=== PATIENT | male | born 1950 | race Caucasian/White ===

== ENCOUNTER → 2018-06-02 09:02 | Outpatient (CLI) | payer MEDICARE, MEDICAID, SELFPAY ==
[2018-06-02 09:53] LABS: Add Manual Diff / Slide Review NO; Basophils Percent Auto 0.8 % (0-2); Eosinophils Percent Auto 4.8 % (2-4); Lymphocytes Percent Auto 31.1 % (25-40); Mean Corpuscular HGB Conc 34.2 % (30-36); Mean Corpuscular Hemoglobin 30.2 PG (26-34); Mean Corpuscular Volume 88.3 fL (80-100); Monocytes Percent Auto 9.9 % (3-14); Neutrophils Absolute Auto 3000 /uL (3000-5900); Neutrophils Percent Auto 53.4 % (50-75); Platelet Count 254 X10^3/uL (150-400); Red Blood Cell Count 4.98 X10^6/uL (4.5-5.9); Red Cell Distribution Width 13.3 % (11.6-14.8); White Blood Cell Count 5.7 X10^3/uL (4.5-11.0)
[2018-06-02 09:58] LABS: Alanine Aminotransferase 29 IU/L (21-72); Albumin 4.3 g/dL (3.5-5.0); Albumin Globulin Ratio 1.4 (1.0-2.8); Alkaline Phosphatase 57 U/L (38-126); Aspartate Aminotransferase 21 IU/L (17-59); BUN Creatinine Ratio 20.9 (6-22); Bilirubin Total 0.6 mg/dL (0.2-1.3); Blood Urea Nitrogen 23 mg/dL (9-20); Calcium 9.2 mg/dL (8.4-10.2); Carbon Dioxide 27 mmol/L (22-32); Chloride 105 mmol/L (98-107); Cholesterol 199 mg/dL (140-199); Estimated Glomerular Filt Rate > 60.0 mL/min (>60); Globulin 3.1 g/dL (1.7-4.1); Glucose 102 mg/dL (80-110); HDL Cholesterol 49 mg/dL (40-60); HEMOLYSIS < 15 (0-50); LDL Cholesterol Calculated 130 mg/dL (<100); Potassium 4.4 mmol/L (3.4-5.1); Sodium 141 mmol/L (137-145); Total Protein 7.4 g/dL (6.3-8.2); Triglycerides 101 mg/dL (35-150)
[2018-06-02 10:56] LABS: TSH w/ Reflex to FT4 4.52 uIU/mL (0.47-4.68)
== END ==
PROVIDERS: PCP Family Medicine; Visit Provider Family Medicine
DX: I10 Essential (primary) hypertension (principal); E66.9 Obesity, unspecified; R73.03 Prediabetes; E78.5 Hyperlipidemia, unspecified; F31.70 Bipolar disorder, currently in remission, most recent episode unspecified
CPT/HCPCS: 36415; 80053; 80061; 84443; 85025

== ENCOUNTER → 2018-09-02 16:25 | Outpatient (CLI) | payer MEDICARE, MEDICAID, SELFPAY ==
[2018-09-02 18:30] LABS: Free T4, Direct Thyroxine 1.12 ng/dL (0.78-2.19)
[2018-09-02 18:44] LABS: Thyroid Stimulating Hormone 1.27 uIU/mL (0.47-4.68)
[2018-09-05 15:23] LABS: Fecal Immunochemical Test DETECTED
== END ==
PROVIDERS: PCP Family Medicine; Visit Provider Family Medicine
DX: F31.70 Bipolar disorder, currently in remission, most recent episode unspecified (principal); F32.9 Major depressive disorder, single episode, unspecified; F41.9 Anxiety disorder, unspecified; F98.8 Other specified behavioral and emotional disorders with onset usually occurring in childhood and adolescence; Z12.11 Encounter for screening for malignant neoplasm of colon
CPT/HCPCS: 36415; 82274; 84439; 84443; 84481

== ENCOUNTER 2018-10-06 14:41 | Day surgery (SDC) | payer MEDICARE, MEDICAID, SELFPAY ==
[2018-10-06 15:03] VITALS: BP 142/87; PULSE 58; RESP 16; TEMP 36.6; O2SAT 95; BMI 32.5
[2018-10-06] MEDS: SODIUM CHLORIDE 0.9% 1,000 ML 200 ML IV (15:26)
--- NOTE | 2018-10-06 15:39 | PM.HP.1 ---
History of Present Illness Date Patient Seen: 10/06/18 Time Patient Seen: 15:53 Chief complaint: [id number] Narrative: Pleasant gentleman who presents for screening colonoscopy. He denies any problems or symptoms related to the function of his GI tract. He reports that he has recently lost about 35 lb and he continues to work on it. He wants to get down another 35 or so. He reports his last colonoscopy was 10 years ago and he thinks it was normal. Perhaps he had 1 benign polyp. Tells me today that he would like to avoid Versed. He would like to try to watch the procedure as long as we can keep him comfortable. Patient History Medical History ADD (attention deficit disorder) (Chronic) Acute meniscal tear of right knee (Chronic) Benign prostatic hyperplasia (Chronic) Bipolar disorder (Chronic) History of psychosis (Chronic) Hypertension (Chronic) Surgical History Status post arthroscopy (~1984) Family & Social History Family History: Reviewed 10/06/18 by Christina Smith MD Social History: household members none Tobacco & Substance use: Smoking Status Never smoker Meds Home Medications Medication Instructions Recorded Confirmed Type terazosin 10 mg PO QDAY #0 02/06/17 10/06/18 History olanzapine [Zyprexa] 2.5 mg PO QDAY #90 tab 06/30/17 10/06/18 Rx sennosides [senna] 8.6 mg PO HSP PRN #30 tab 12/23/17 10/06/18 Rx fluticasone 50 mcg/actuation nasal 1 spray INTRANASAL BID #1 bot 06/04/18 10/06/18 Rx spray,suspension metoprolol succinate [Toprol XL] 50 mg PO QDAY #90 tab 06/08/18 10/06/18 Rx pimecrolimus 1 % topical cream 1 applictn TOP BIDP #1 tube 06/30/18 10/06/18 Rx ibuprofen 600 mg tablet 600 mg PO Q6HP PRN #90 tab 07/01/18 10/06/18 Rx levothyroxine 50 mcg capsule 50 mcg PO DAILY #90 cap 08/31/18 10/06/18 Rx paroxetine 40 mg tablet See Label Instructions PO DAILY 09/10/18 10/06/18 Rx #45 tab dextroamphetamine-amphetamine ER 40 mg PO QAM #60 cap 09/14/18 10/06/18 Rx 20 mg 24hr capsule,extend release Allergies Allergy/AdvReac Type Severity Reaction Status Date / Time enalapril [ENALAPRIL] Allergy Severe TONGUE Verified 10/06/18 15:02 SWELLS amlodipine [AMLODIPINE] Allergy Mild LEG Verified 09/03/18 14:17 SWELLING lisinopril [LISINOPRIL] Allergy Mild DIARRHEA Verified 09/03/18 14:17 lorazepam [LORAZEPAM] Allergy Mild VISION Verified 09/03/18 14:17 CHANGES acetaminophen [From PERCOCET] AdvReac Intermediate itching Verified 09/03/18 14:17 oxycodone [From PERCOCET] AdvReac Intermediate itching Verified 09/03/18 14:17 Review of Systems Review of Systems All systems reviewed & are unremarkable except as noted in HPI and below Exam Vital Signs (past 8 hours): - 10/06/18 15:03 Temperature 97.8 F Pulse Rate 58 L Respiratory Rate 16 Blood Pressure 142/87 H Pulse Oximetry 95 Oxygen Delivery Method Room Air Narrative Exam Narrative: Very pleasant gentleman in no distress HEENT: Normocephalic atraumatic, pupils equal round reactive to light accommodation with anicteric sclera Lungs: Clear to auscultation bilaterally Heart: Regular rate and rhythm without murmur rub or gallop Abdomen: Soft, nontender, active bowel sounds Extremities: Warm and well perfused Assessment & Plan Plan: Assessment/Plan Narrative: Wonderful 67-year-old gentleman here for screening colonoscopy. We discussed the risks and benefits of the procedure the patient expressed a desire to complete it today.
[2018-10-06 15:55] VITALS: BP 130/85; PULSE 54; RESP 15; TEMP 36.8; O2SAT 95
[2018-10-06] MEDS: MIDAZOLAM 5 MG/5 ML VIAL IV (15:56)
--- NOTE | 2018-10-06 15:56 | P.HP_ITS ---
History of Present Illness Date Patient Seen: 10/06/18 Time Patient Seen: 15:53 Chief complaint: [id number] Narrative: Pleasant gentleman who presents for screening colonoscopy. He denies any problems or symptoms related to the function of his GI tract. He reports that he has recently lost about 35 lb and he continues to work on it. He wants to get down another 35 or so. He reports his last colonoscopy was 10 years ago and he thinks it was normal. Perhaps he had 1 benign polyp. Tells me today that he would like to avoid Versed. He would like to try to watch the procedure as long as we can keep him comfortable. Patient History Medical History ADD (attention deficit disorder) (Chronic) Acute meniscal tear of right knee (Chronic) Benign prostatic hyperplasia (Chronic) Bipolar disorder (Chronic) History of psychosis (Chronic) Hypertension (Chronic) Surgical History Status post arthroscopy (~1984) Family & Social History Family History: Reviewed 10/06/18 by Christina Smith MD Social History: household members none Tobacco & Substance use: Smoking Status Never smoker Meds Home Medications Medication Instructions Recorded Confirmed Type terazosin 10 mg PO QDAY #0 02/06/17 10/06/18 History olanzapine [Zyprexa] 2.5 mg PO QDAY #90 tab 06/30/17 10/06/18 Rx sennosides [senna] 8.6 mg PO HSP PRN #30 tab 12/23/17 10/06/18 Rx fluticasone 50 mcg/actuation nasal 1 spray INTRANASAL BID #1 bot 06/04/18 Rx spray,suspension metoprolol succinate [Toprol XL] 50 mg PO QDAY #90 tab 06/08/18 10/06/18 Rx pimecrolimus 1 % topical cream 1 applictn TOP BIDP #1 tube 06/30/18 10/06/18 Rx ibuprofen 600 mg tablet 600 mg PO Q6HP PRN #90 tab 07/01/18 10/06/18 Rx levothyroxine 50 mcg capsule 50 mcg PO DAILY #90 cap 08/31/18 10/06/18 Rx paroxetine 40 mg tablet See Label Instructions PO DAILY 09/10/18 10/06/18 Rx #45 tab dextroamphetamine-amphetamine ER 40 mg PO QAM #60 cap 09/14/18 10/06/18 Rx 20 mg 24hr capsule,extend release Allergies Allergy/AdvReac Type Severity Reaction Status Date / Time enalapril [ENALAPRIL] Allergy Severe TONGUE Verified 10/06/18 15:02 SWELLS amlodipine [AMLODIPINE] Allergy Mild LEG Verified 09/03/18 14:17 SWELLING lisinopril [LISINOPRIL] Allergy Mild DIARRHEA Verified 09/03/18 14:17 lorazepam [LORAZEPAM] Allergy Mild VISION Verified 09/03/18 14:17 CHANGES acetaminophen [From PERCOCET] AdvReac Intermediate itching Verified 09/03/18 14: 17 oxycodone [From PERCOCET] AdvReac Intermediate itching Verified 09/03/18 14:17 Review of Systems Review of Systems All systems reviewed & are unremarkable except as noted in HPI and below Exam Vital Signs (past 8 hours): - 10/06/18 15:03 Temperature 97.8 F Pulse Rate 58 L Respiratory Rate 16 Blood Pressure 142/87 H Pulse Oximetry 95 Oxygen Delivery Method Room Air Narrative Exam Narrative: Very pleasant gentleman in no distress HEENT: Normocephalic atraumatic, pupils equal round reactive to light accommodation with anicteric sclera Lungs: Clear to auscultation bilaterally Heart: Regular rate and rhythm without murmur rub or gallop Abdomen: Soft, nontender, active bowel sounds Extremities: Warm and well perfused Assessment & Plan Plan: Assessment/Plan Narrative: Wonderful 67-year-old gentleman here for screening colonoscopy. We discussed the risks and benefits of the procedure the patient expressed a desire to complete it today.
--- NOTE | 2018-10-06 15:56 | PM.OP.1 ---
Operative Date/Time/Diagnoses Date of procedure: 10/06/18 Time of procedure: 15:56 Pre-op diagnosis: Screening Post-op diagnosis: same Procedure & Clinicians Procedure: Colonoscopy to the cecum Same procedure as scheduled: Yes Indications: Last colonoscopy 10 years ago Surgeon: Christina Smith Anesthesia Type: Sedation (Versed 2 mg; fentanyl 150 mcg) Operative Notes Findings: 1. Excellent prep 2. No polyps or mass lesions 3. Melanosis coli noted throughout 4. Minimal diverticulosis limited to the sigmoid region 5. Grade 1-2 internal hemorrhoids Closure Type: not applicable Specimen(s): none sent Procedure in detail: After obtaining informed consent, the patient was brought to the GI suite and placed in the left lateral decubitus position on the examination table. After placement of appropriate monitors, the patient was given incremental doses of Versed and Fentanyl until an appropriate level of sedation was achieved. A time out was held per [facility] protocol. A digital rectal examination was performed and did not reveal any masses or obstructing lesions. The colonoscope was gently passed into the patient's anus and the entire colon navigated to the level of the cecum with minimal difficulty. Once in the cecum, the scope was withdrawn being sure to go before and beyond all mucosal folds and prominences and get an excellent examination. The findings are noted above. At the level of the rectal vault, the scope was retroflexed and the internal anal canal was examined. The scope was straightened and air aspirated from the colon. The instrument was removed from the patient's body and the procedure was concluded. The patient was allowed to awaken from sedation without difficulty and taken to the post-anesthesia care unit in good condition. Total sedation time 11 min Total withdrawal time 7 min 51 sec Complications: none Condition: stable Disposition: PACU Plan for aftercare: 1. Discharge to home 2. Plan for next colonoscopy in 10 years or as clinically indicated
[2018-10-06] MEDS: fentaNYL 250 MCG/5 ML INJ IV (15:57)
[2018-10-06 16:15] VITALS: BP 123/78; PULSE 52; RESP 16; TEMP 36.8; O2SAT 98
== END 2018-10-06 16:25 | disposition home or self-care (01) ==
PROVIDERS: PCP Family Medicine; Visit Provider Surgery
PROC: 0DJD8ZZ Inspection of Lower Intestinal Tract, Via Natural or Artificial Opening Endoscopic (ICD-10-PCS; CPT 45378; principal; 2018-10-06 15:45)
DX: Z12.11 Encounter for screening for malignant neoplasm of colon (principal); K57.30 Diverticulosis of large intestine without perforation or abscess without bleeding; K64.1 Second degree hemorrhoids; I10 Essential (primary) hypertension; N40.0 Benign prostatic hyperplasia without lower urinary tract symptoms; F98.8 Other specified behavioral and emotional disorders with onset usually occurring in childhood and adolescence; F31.9 Bipolar disorder, unspecified
CPT/HCPCS: G0121; 99152; J2250; J3010

== ENCOUNTER → 2019-06-11 17:14 | Outpatient (CLI) | payer MEDICARE, MEDICAID, SELFPAY ==
[2019-06-11 18:17] LABS: Alanine Aminotransferase 9 IU/L (21-72); Albumin 4.5 g/dL (3.5-5.0); Albumin Globulin Ratio 1.3 (1.0-2.8); Alkaline Phosphatase 59 U/L (38-126); Aspartate Aminotransferase 23 IU/L (17-59); BUN Creatinine Ratio 17.3 (6-22); Bilirubin Total 0.7 mg/dL (0.2-1.3); Blood Urea Nitrogen 19 mg/dL (9-20); Calcium 9.6 mg/dL (8.4-10.2); Carbon Dioxide 25 mmol/L (22-32); Chloride 105 mmol/L (98-107); Cholesterol 181 mg/dL (140-199); Estimated Glomerular Filt Rate > 60.0 mL/min (>60); Globulin 3.6 g/dL (1.7-4.1); Glucose 97 mg/dL (80-110); HDL Cholesterol 39 mg/dL (40-60); HEMOLYSIS 45 (0-50); LDL Cholesterol Calculated 112 mg/dL (<100); Potassium 4.3 mmol/L (3.4-5.1); Sodium 143 mmol/L (137-145); Total Protein 8.1 g/dL (6.3-8.2); Triglycerides 150 mg/dL (35-150)
[2019-06-11 18:58] LABS: Free T3, Triiodothyronine Free 3.88 pg/mL (2.77-5.27)
[2019-06-11 19:11] LABS: Thyroid Stimulating Hormone 1.04 uIU/mL (0.47-4.68)
[2019-06-15 14:22] LABS: Thyroid Peroxidase Antibodies 1 IU/mL (< 9)
== END ==
PROVIDERS: PCP Family Medicine; Visit Provider Family Medicine
DX: E03.9 Hypothyroidism, unspecified (principal); E78.5 Hyperlipidemia, unspecified; I10 Essential (primary) hypertension
CPT/HCPCS: 36415; 80053; 80061; 84439; 84443; 84481; 86376

== ENCOUNTER 2019-06-15 12:03 | Observation (INO) | payer MEDICARE, MEDICAID, SELFPAY ==
[2019-06-15] VITALS (8 sets, daily range): BP systolic 99–150; BP diastolic 45–87; PULSE 45–52; RESP 16–20; TEMP 36.4–37.2; O2SAT 94–100; BMI 31.8
--- NOTE | 2019-06-15 12:15 | ED.ALLEREA ---
HPI - Allergic Reaction <Fior ThompsonTG - Last Filed: 06/15/19 16:44> General Chief complaint: Allergic Reaction Stated complaint: Syncope Time Seen by Provider: 06/15/19 12:05 Source: patient Mode of arrival: ambulatory Limitations: no limitations History of Present Illness HPI narrative: 68-year-old male with a history of hypertension, presents emergency department after being stung by a bee twice-once on the top of his head and once on the right side of his nose. He states that he has an allergic reaction to bee stings results and significant swelling around the area but never anaphylaxis or shortness of breath or swelling of the airway. Once he was stung he was given 3 Benadryl to take, he was eating a candy bar about 20 minutes later and then started to feel little bit dizzy. Patient stated the next thing he knew he woke up on the floor, bystanders stated he passed out for a few seconds, his blood pressure was taken by a nurse and was noted to have a systolic measurement in the 60s. EMS was called and found the patient to have a systolic blood pressure in the 90s. Patient states he is feeling much better. Denies any dizziness, chest pain, shortness of breath, airway swelling, swollen tongue, difficulty talking, change in voice, change in vision, diaphoresis, abdominal pain, nausea, vomiting, change in bowel or bladder habits, or additional syncope after the 1st episode. He states he is wondering if the Benadryl interacted with his metoprolol. He has never been given an EpiPen for his allergic reactions. Additionally, he denies any itching, burning, swelling, or irritation with the stings are. He states he was stung about 1.5 hours ago. Related Data Home Medications Medication Instructions Recorded Confirmed finasteride 5 mg tablet 5 mg PO QPM 12/03/18 06/15/19 tamsulosin 0.4 mg capsule 0.8 mg PO QPM cap 12/03/18 06/15/19 dextroamphetamine-amphetamine 60 mg PO DAILY 06/15/19 06/15/19 [Adderall XR] fluticasone propionate 1 spray INTRANASAL BID PRN 06/15/19 06/15/19 levothyroxine 50 mcg PO DAILY 06/15/19 06/15/19 metoprolol succinate [Toprol XL] 50 mg PO QPM 06/15/19 06/15/19 paroxetine HCl [Paxil] 60 mg PO QPM 06/15/19 06/15/19 Previous Rx's Medication Instructions Recorded ibuprofen 600 mg tablet 600 mg PO Q6HP PRN #90 tab 12/14/18 omeprazole 20 mg capsule,delayed 20 mg PO DAILY #30 cap 05/27/19 release triamcinolone acetonide 0.1 % 1 applictn TOP BID #15 gram 05/27/19 topical cream pimecrolimus 1 % topical cream 1 applictn TOP BIDP #1 tube 06/02/19 Allergies Allergy/AdvReac Type Severity Reaction Status Date / Time enalapril [ENALAPRIL] Allergy Severe TONGUE Verified 05/27/19 15:46 SWELLS amlodipine [AMLODIPINE] Allergy Mild LEG Verified 05/27/19 15:46 SWELLING lisinopril [LISINOPRIL] Allergy Mild DIARRHEA Verified 05/27/19 15:46 acetaminophen [From PERCOCET] AdvReac Intermediate itching Verified 05/27/19 15:46 oxycodone [From PERCOCET] AdvReac Intermediate itching Verified 05/27/19 15:46 Review of Systems <TG Mendez - Last Filed: 06/15/19 16:44> Review of Systems REVIEW OF SYSTEMS: GENERAL: Denies fever or chills. HENT: No head trauma, hearing loss, rhinorrhea, epistaxis, sinus pressure, sore throat, or dysphagia. No tongue swelling, see HPI. EYES: No loss of vision, double vision, eye pain, or irritation. CARDIOVASCULAR: Complains of syncope, see HPI. No chest pain or palpitations. RESPIRATORY: No shortness of breath, cough, or wheeze. GASTROINTESTINAL: No change in appetite, nausea, vomiting, stool changes, or melena. GENITOURINARY: No flank pain, urinary incontinence, hesitancy, frequency, or dysuria. MUSCULOSKELETAL: No pain, weakness, or deformities. INTEGUMENTARY: Complains of bee stings, see HPI. No for pruritus. NEURO: No numbness, tingling, memory loss, confusion, or headaches. PSYCH: No behavior or mood changes. ENDOCRINOLOGY: No hair loss of temperature intolerance. LYMPHATIC: No lymphadenopathy. PFSH <TG Mendez - Last Filed: 06/15/19 16:44> Medical History ADD (attention deficit disorder) (Chronic) Acute meniscal tear of right knee (Chronic) Benign prostatic hyperplasia (Chronic) Bipolar disorder (Chronic) History of psychosis (Chronic) Hypertension (Chronic) Surgical History Status post arthroscopy (~1984) Family History Mother CAD (coronary artery disease) Myocardial infarct Ovarian cancer, unspecified laterality Father Cirrhosis Lung cancer Family/Other Dementia Social History household members: none Smoking Status: Never smoker alcohol intake: never Family History Mother CAD (coronary artery disease) Myocardial infarct Ovarian cancer, unspecified laterality Father Cirrhosis Lung cancer Family/Other Dementia Social History household members: none Smoking Status: Never smoker alcohol intake: never Exam <TG Mendez - Last Filed: 06/15/19 16:44> Initial Vital Signs Initial Vital Signs: Vital Signs Temperature 99 F 06/15/19 12:00 Pulse Rate 46 L 06/15/19 12:00 Respiratory Rate 20 06/15/19 12:00 Blood Pressure 143/78 H 06/15/19 12:00 Pulse Oximetry 99 06/15/19 12:00 PHYSICAL EXAMINATION: GENERAL: Alert, and cooperative. Answers questions promptly and appropriately. Vital signs noted. HENT: Normocephalic, atraumatic.. Oral mucosa is pink and moist, no caries or lesions present. Tongue and lips normal size without swelling or redness, no angioedema present. Pharynx without erythema. Voice is clear. 0.25cm patch of erythema noted to the top of the head where he stated he was stung by a bee. 0.5cm patch of swelling and slight erythema noted to the right side of the middle of his nose. Nares remain patent. EYES: PERRLA, EOMIs, conjunctiva pink, sclera white, no periorbital swelling. NECK: Full range of motion, nontender. LYMPH: No lymphadenopathy. CHEST: Normal to inspection and without deformities. CARDIOVASCULAR: S1 and S2 sounds normal. Bradycardia, no murmurs, clicks, or bruits. No pedal edema. Patient able to ambulate without syncope or dizziness. Patient was positive for orthostatic hypotensive blood pressure changes (40 mmHg drop in his systolic pressure from sitting to standing, positive complains of dizziness, but without heart rate changes as measured per nursing staff). During cardiac monitoring patient's rate ranged 30-49bpm, patient stated be low 45bpm for only 1-2 minutes and would return back to 47-48 bpm, this often occurred while the patient was sleeping or lying in bed, he did not complain of symptoms during this episode of extreme bradycardia. RESPIRATORY: Normal respiratory rate, trachea midline, airway patent. No stridor, nasal flaring or accessory muscle use. Lungs are clear in all ness without wheeze, rhonchi, or crackles. GASTROINTESTINAL: Bowel sounds normoactive. Abdomen is soft and non-tender. No organomegaly. Small umbilical hernia noted (approximately 3-5cm in diameter) this is reducible and nontender. MUSCULOSKELETAL: Normal gait and coordination. Equal tone and mass bilaterally. EXTREMITIES: CMS intact. Moves all extremities. SKIN: Warm, dry, soft, appropriate color for ethnicity. No lesions, rashes, or wounds. NEURO: Alert and Oriented X 3. CN III-XII intact. Good coordination. No ataxia, or sensory deficits, or cognitive issues. PSYCH: Appropriate affect and mood. <Giancarlo Dietrich DO - Last Filed: 06/15/19 19:41> Initial Vital Signs Initial Vital Signs: Vital Signs Temperature 99 F 06/15/19 12:00 Pulse Rate 46 L 06/15/19 12:00 Respiratory Rate 20 06/15/19 12:00 Blood Pressure 143/78 H 06/15/19 12:00 Pulse Oximetry 99 06/15/19 12:00 Scores <TG Mendez - Last Filed: 06/15/19 16:44> HEART Score Heart Score history: Slightly Suspicious Heart Score EKG: Normal Heart Score Age: > or = 65 years old Heart Score risk factors: 1-2 risk factors Heart Score troponin: < or = to normal limit Heart Score Total: 3 Course <TG Mendez Filed: 06/15/19 16:44> Course Narrative: During the course of his stay in the emergency department who noted to have 2 episodes of bradycardia down to 30bpm which lasted less than 2 minutes and occurred when the patient was lying down or asleep. During these episodes patient denied any symptoms. Orthostatic blood pressures were taken, he was noted to have a systolic blood pressure dropped of about 40mmHg from sitting to standing with associated dizziness and no change in heart rate. When standing for a few minutes patient stated the symptoms went away, he was able to ambulate around the department without symptoms, during ambulation his heart rate was noted to be 61-58s. The entire time patient denied chest pain or shortness of breath. He stated he was taking his metoprolol as directed-1 pill daily and the dose had not been change in some time. The only other factor that occurred today was the bee stings and his consumption of 75mg of Benadryl. After consultation, patient was admitted to observation. Orders Ordered: ED Orders 06/15/19 12:21 EKG-12 Lead Stat 06/15/19 12:47 Complete Blood Count AUTO DIFF Stat Comprehensive Metabolic Panel Stat Partial Thromboplastin Time Stat Prothrombin Time INR Stat Troponin & CK Cardiac Panel Stat 06/15/19 16:30 Education, smoking cessation ONGOING Enoxaparin Sodium (Lovenox) 40 mg SUBCUT DAILY COUNTS INCLUDE 234 BEDS AT THE [facility] Last Admin: 06/15/19 17:30 Dose: 40 mg Finasteride (Proscar) 5 mg PO QPM COUNTS INCLUDE 234 BEDS AT THE [facility] Fluticasone Propionate (Flonase) 1 spray NASAL BID PRN PRN Reason: Allergy Symptoms Ibuprofen (Advil) 600 mg PO Q6H PRN PRN Reason: pain Levothyroxine Sodium (Synthroid) 50 mcg PO 0600 COUNTS INCLUDE 234 BEDS AT THE [facility] Pimecrolimus [Elidel (] 1 Appl) 1 applictn TOP BID COUNTS INCLUDE 234 BEDS AT THE [facility] Dextroamphetamine- Amphetamine [ Adderall Xr] 60 Mg 60 mg PO DAILY COUNTS INCLUDE 234 BEDS AT THE [facility] Pantoprazole Sodium (Protonix) 20 mg PO DAILY KRISTEN Paroxetine HCl (Paxil) 60 mg PO QPM COUNTS INCLUDE 234 BEDS AT THE [facility] Tamsulosin HCl (Flomax) 0.8 mg PO QPM COUNTS INCLUDE 234 BEDS AT THE [facility] Triamcinolone Acetonide (Kenalog 0.1% Cream) 1 applic TOP BID COUNTS INCLUDE 234 BEDS AT THE [facility] Reevaluation(s) Reevaluation #1: Patient was re-evaluated after his ambulation trial, he denies any symptoms. Consultations Consultation #1: Spoke with Dr. Ramesh about patient's bradycardia and change in orthostatic blood pressure upon standing, who recommended admission to observation with telemetry, but requested he be admitted to [facility]. Additionally, his next does of metoprolol is to be held tomorrow. Nursing staff and patient aware of admission and medication hold. Time: 13:50 Consultation #2: Patient staffed with Dr. Dietrich. Time: 12:00 Vital Signs - 8 hr 06/15/19 12:00 06/15/19 13:00 06/15/19 13:40 Temperature 99 F Pulse Rate 46 L 49 L 48 L Respiratory Rate 20 20 Blood Pressure 143/78 H Blood Pressure [Right Arm] 131/72 105/69 Pulse Oximetry 99 100 100 06/15/19 16:24 06/15/19 18:41 Temperature 97.5 F L Pulse Rate 49 L Respiratory Rate 18 Blood Pressure 111/45 L Blood Pressure [Right Arm] Pulse Oximetry 99 99 <Giancarlo Dietrich, DO - Last Filed: 06/15/19 19:41> Orders Ordered: ED Orders 06/15/19 12:21 EKG-12 Lead Stat 06/15/19 12:47 Complete Blood Count AUTO DIFF Stat Comprehensive Metabolic Panel Stat Partial Thromboplastin Time Stat Prothrombin Time INR Stat Troponin & CK Cardiac Panel Stat 06/15/19 16:30 Education, smoking cessation ONGOING Enoxaparin Sodium (Lovenox) 40 mg SUBCUT DAILY COUNTS INCLUDE 234 BEDS AT THE [facility] Last Admin: 06/15/19 17:30 Dose: 40 mg Finasteride (Proscar) 5 mg PO QPM COUNTS INCLUDE 234 BEDS AT THE [facility] Fluticasone Propionate (Flonase) 1 spray NASAL BID PRN PRN Reason: Allergy Symptoms Ibuprofen (Advil) 600 mg PO Q6H PRN PRN Reason: pain Levothyroxine Sodium (Synthroid) 50 mcg PO 0600 COUNTS INCLUDE 234 BEDS AT THE [facility] Pimecrolimus [Elidel (] 1 Appl) 1 applictn TOP BID KRISTEN Dextroamphetamine- Amphetamine [ Adderall Xr] 60 Mg 60 mg PO DAILY COUNTS INCLUDE 234 BEDS AT THE [facility] Pantoprazole Sodium (Protonix) 20 mg PO DAILY KRISTEN Paroxetine HCl (Paxil) 60 mg PO QPM KRISTEN Tamsulosin HCl (Flomax) 0.8 mg PO QPM KRISTEN Triamcinolone Acetonide (Kenalog 0.1% Cream) 1 applic TOP BID COUNTS INCLUDE 234 BEDS AT THE [facility] Vital Signs - 8 hr 06/15/19 12:00 06/15/19 13:00 06/15/19 13:40 Temperature 99 F Pulse Rate 46 L 49 L 48 L Respiratory Rate 20 20 Blood Pressure 143/78 H Blood Pressure [Right Arm] 131/72 105/69 Pulse Oximetry 99 100 100 06/15/19 16:24 06/15/19 18:41 Temperature 97.5 F L Pulse Rate 49 L Respiratory Rate 18 Blood Pressure 111/45 L Blood Pressure [Right Arm] Pulse Oximetry 99 99 MDM - Allergic Reaction <TG Mendez - Last Filed: 06/15/19 16:44> Medical Records Attestation: I reviewed the patient's medical records. Lab Data Attestation: I reviewed the patient's lab results. Result diagrams: 06/15/19 12:47 06/15/19 12:47 Lab Results 06/15/19 06/15/19 06/15/19 Range/Units 12:47 12:47 12:47 WBC 4.1 L (4.5-11.0) X10^3/uL RBC 4.60 (4.5-5.9) X10^6/uL Hgb 13.6 (13.5-17.5) g/dL Hct 40.4 L (41-53) % MCV 87.9 (80-100) fL MCH 29.5 (26-34) PG MCHC 33.6 (30-36) % RDW 13.2 (11.6-14.8) % Plt Count 237 (150-400) X10^3/uL Neut % (Auto) 81.5 H (50-75) % Lymph % (Auto) 12.9 L (25-40) % [place] % (Auto) 4.2 (3-14) % Eos % (Auto) 1.1 L (2-4) % Baso % (Auto) 0.3 (0-2) % Neut # (Auto) 3300 (8180-2052) /uL Lymph # (Auto) 500 L (5693-0929) /uL [place] # (Auto) 200 (0-900) /uL Eos # (Auto) 0 (0-450) /uL Baso # (Auto) 0 (0-100) /uL PT 12.1 (10.1-12.7) SECONDS INR 1.0 (0.9-1.3) APTT 30 (26.4-36.2) SECONDS Sodium 140 (137-145) mmol/L Potassium 3.9 (3.4-5.1) mmol/L Chloride 107 (98-107) mmol/L Carbon Dioxide 25 (22-32) mmol/L BUN 23 H (9-20) mg/dL Creatinine 1.10 (0.66-1.25) mg/dL Estimated GFR > 60.0 (>60) mL/min BUN/Creatinine Ratio 20.9 (6-22) Glucose 120 H (80-110) mg/dL Calcium 8.9 (8.4-10.2) mg/dL Total Bilirubin 0.7 (0.2-1.3) mg/dL AST 15 L (17-59) IU/L ALT 17 L (21-72) IU/L Alkaline Phosphatase 57 (38-126) U/L Total Creatine Kinase 69 (55-170) U/L CK-MB (CK-2) TNP CK-MB (CK-2) Rel Index TNP Troponin I < 0.012 (0.01-0.034) ng/mL Total Protein 6.6 (6.3-8.2) g/dL Albumin 3.7 (3.5-5.0) g/dL Globulin 2.9 (1.7-4.1) g/dL Albumin/Globulin Ratio 1.3 (1.0-2.8) ECG Data Interpretation: Sinus bradycardia, rate 48, PA interval 191, QTC 418, no ST elevation or ST depression, T-wave inversion, no ectopy. EKG was also viewed by Dr. Dietrich. [facility] Narrative Medical decision making narrative: While patient's heart rate is normally below 60, according to his previous min visit over the past 2 years his rate appears to range from 58-60. I did not find any heart rate measurements noted below 50 which she has exhibited throughout the emergency department today. SA node dysfunction versus medication induced bradycardia (currently on metoprolol). Less likely hypertension related to anaphylaxis due to lack of other symptoms such as swelling, angioedema, hives, flushing, erythema, swelling at the site, history of anaphylaxis, and delayed response of syncope (40-50 minutes). Less likely vagal activity as patient was asleep during these events, less likely [place] due to negative cardiac enzymes and normal EKG. Concerned about episodes of heart rate, after consultation it was decided that patient was best admitted for observation on telemetry. <Giancarlo Dietrich DO - Last Filed: 06/15/19 19:41> Lab Data Lab Results 06/15/19 06/15/19 06/15/19 Range/Units 12:47 12:47 12:47 WBC 4.1 L (4.5-11.0) X10^3/uL RBC 4.60 (4.5-5.9) X10^6/uL Hgb 13.6 (13.5-17.5) g/dL Hct 40.4 L (41-53) % MCV 87.9 (80-100) fL MCH 29.5 (26-34) PG MCHC 33.6 (30-36) % RDW 13.2 (11.6-14.8) % Plt Count 237 (150-400) X10^3/uL Neut % (Auto) 81.5 H (50-75) % Lymph % (Auto) 12.9 L (25-40) % [place] % (Auto) 4.2 (3-14) % Eos % (Auto) 1.1 L (2-4) % Baso % (Auto) 0.3 (0-2) % Neut # (Auto) 3300 (5226-2622) /uL Lymph # (Auto) 500 L (3498-8685) /uL [place] # (Auto) 200 (0-900) /uL Eos # (Auto) 0 (0-450) /uL Baso # (Auto) 0 (0-100) /uL PT 12.1 (10.1-12.7) SECONDS INR 1.0 (0.9-1.3) APTT 30 (26.4-36.2) SECONDS Sodium 140 (137-145) mmol/L Potassium 3.9 (3.4-5.1) mmol/L Chloride 107 (98-107) mmol/L Carbon Dioxide 25 (22-32) mmol/L BUN 23 H (9-20) mg/dL Creatinine 1.10 (0.66-1.25) mg/dL Estimated GFR > 60.0 (>60) mL/min BUN/Creatinine Ratio 20.9 (6-22) Glucose 120 H (80-110) mg/dL Calcium 8.9 (8.4-10.2) mg/dL Total Bilirubin 0.7 (0.2-1.3) mg/dL AST 15 L (17-59) IU/L ALT 17 L (21-72) IU/L Alkaline Phosphatase 57 (38-126) U/L Total Creatine Kinase 69 (55-170) U/L CK-MB (CK-2) TNP CK-MB (CK-2) Rel Index TNP Troponin I < 0.012 (0.01-0.034) ng/mL Total Protein 6.6 (6.3-8.2) g/dL Albumin 3.7 (3.5-5.0) g/dL Globulin 2.9 (1.7-4.1) g/dL Albumin/Globulin Ratio 1.3 (1.0-2.8) Discharge Plan Departure Patient Disposition: Admitted as Observation Clinical Impression: Bradycardia Syncope Qualifiers: Syncope type: unspecified Qualified Code(s): R55 - Syncope and collapse Discharge Date/Time: 06/15/19 15:42 Interventions: ED Discharge Assessment Last Done: 06/15/19 14:35 Admit Date/Time: 06/15/19 14:21 Admit Provider: Justin Ramesh <Giancarlo Dietrich DO - Last Filed: 06/15/19 19:41> Cosign ED Attending Rahul Attestation: I was immediately available in the department for consultation. Documentation has been reviewed. I agree with assessment and plan.
--- NOTE | 2019-06-15 12:18 | ED_ITS ---
HPI - Allergic Reaction <Fior ThompsonTG - Last Filed: 06/15/19 16:44> General Chief complaint: Allergic Reaction Stated complaint: Syncope Time Seen by Provider: 06/15/19 12:05 Source: patient Mode of arrival: ambulatory Limitations: no limitations History of Present Illness HPI narrative: 68-year-old male with a history of hypertension, presents emergency department after being stung by a bee twice-once on the top of his head and once on the right side of his nose. He states that he has an allergic reaction to bee stings results and significant swelling around the area but neve r anaphylaxis or shortness of breath or swelling of the airway. Once he was stung he was given 3 Benadryl to take, he was eating a candy bar about 20 minutes later and then started to feel little bit dizzy. Patient stated the next thing he knew he woke up on the floor, bystanders stated he passed out for a few seconds, his blood pressure was taken by a nurse and was noted to have a systolic measurement in the 60s. EMS was called and found the patient to have a systolic blood pressure in the 90s. Patient states he is feeling much better. Denies any dizziness, chest pain, shortness of breath, airway swelling, swollen tongue, difficulty talking, change in voice, change in vision, diaphoresis, abdominal pain, nausea, vomiting, change in bowel or bladder habits, or additional syncope after the 1st episode. He states he is wondering if the Benadryl interacted with his metoprolol. He has never been given an EpiPen for his allergic reactions. Additionally, he denies any itching, burning, swelling, or irritation with the stings are. He states he was stung about 1.5 hours ago. Related Data Home Medications Medication Instructions Recorded Confirmed finasteride 5 mg tablet 5 mg PO QPM 12/03/18 06/15/19 tamsulosin 0.4 mg capsule 0.8 mg PO QPM cap 12/03/18 06/15/19 dextroamphetamine-amphetamine 60 mg PO DAILY 06/15/19 06/15/19 [Adderall XR] fluticasone propionate 1 spray INTRANASAL BID PRN 06/15/19 06/15/19 levothyroxine 50 mcg PO DAILY 06/15/19 06/15/19 metoprolol succinate [Toprol XL] 50 mg PO QPM 06/15/19 06/15/19 paroxetine HCl [Paxil] 60 mg PO QPM 06/15/19 06/15/19 Previous Rx's Medication Instructions Recorded ibuprofen 600 mg tablet 600 mg PO Q6HP PRN #90 tab 12/14/18 omeprazole 20 mg capsule,delayed 20 mg PO DAILY #30 cap 05/27/19 release triamcinolone acetonide 0.1 % 1 applictn TOP BID #15 gram 05/27/19 topical cream pimecrolimus 1 % topical cream 1 applictn TOP BIDP #1 tube 06/02/19 Allergies Allergy/AdvReac Type Severity Reaction Status Date / Time enalapril [ENALAPRIL] Allergy Severe TONGUE Verified 05/27/19 15:46 SWELLS amlodipine [AMLODIPINE] Allergy Mild LEG Verified 05/27/19 15:46 SWELLING lisinopril [LISINOPRIL] Allergy Mild DIARRHEA Verified 05/27/19 15:46 acetaminophen [From PERCOCET] AdvReac Intermediate itching Verified 05/27/19 15:46 oxycodone [From PERCOCET] AdvReac Intermediate itching Verified 05/27/19 15:46 Review of Systems <TG Mendez - Last Filed: 06/15/19 16:44> Review of Systems REVIEW OF SYSTEMS: GENERAL: Denies fever or chills. HENT: No head trauma, hearing loss, rhinorrhea, epistaxis, sinus pressure, sore throat, or dysphagia. No tongue swelling, see HPI. EYES: No loss of vision, double vision, eye pain, or irritation. CARDIOVASCULAR: Complains of syncope, see HPI. No chest pain or palpitations. RESPIRATORY: No shortness of breath, cough, or wheeze. GASTROINTESTINAL: No change in appetite, nausea, vomiting, stool changes, or melena. GENITOURINARY: No flank pain, urinary incontinence, hesitancy, frequency, or d ysuria. MUSCULOSKELETAL: No pain, weakness, or deformities. INTEGUMENTARY: Complains of bee stings, see HPI. No for pruritus. NEURO: No numbness, tingling, memory loss, confusion, or headaches. PSYCH: No behavior or mood changes. ENDOCRINOLOGY: No hair loss of temperature intolerance. LYMPHATIC: No lymphadenopathy. PFSH <TG Mendez - Last Filed: 06/15/19 16:44> Medical History ADD (attention deficit disorder) (Chronic) Acute meniscal tear of right knee (Chronic) Benign prostatic hyperplasia (Chronic) Bipolar disorder (Chronic) History of psychosis (Chronic) Hypertension (Chronic) Surgical History Status post arthroscopy (~1984) Family History Mother CAD (coronary artery disease) Myocardial infarct Ovarian cancer, unspecified laterality Father Cirrhosis Lung cancer Family/Other Dementia Social History household members: none Smoking Status: Never smoker alcohol intake: never Family History Mother CAD (coronary artery disease) Myocardial infarct Ovarian cancer, unspecified laterality Father Cirrhosis Lung cancer Family/Other Dementia Social History household members: none Smoking Status: Never smoker alcohol intake: never Exam <TG Mendez - Last Filed: 06/15/19 16:44> Initial Vital Signs Initial Vital Signs: Vital Signs Temperature 99 F 06/15/19 12:00 Pulse Rate 46 L 06/15/19 12:00 Respiratory Rate 20 06/15/19 12:00 Blood Pressure 143/78 H 06/15/19 12:00 Pulse Oximetry 99 06/15/19 12:00 PHYSICAL EXAMINATION: GENERAL: Alert, and cooperative. Answers questions promptly and appropriately. Vital signs noted. HENT: Normocephalic, atraumatic.. Oral mucosa is pink and moist, no caries or lesions present. Tongue and lips normal size without swelling or redness, no angioedema present. Pharynx without erythema. Voice is clear. 0.25cm patch of erythema noted to the top of the head where he stated he was stung by a bee. 0.5cm patch of swelling and slight erythema noted to the right side of the middle of his nose. Nares remain patent. EYES: PERRLA, EOMIs, conjunctiva pink, sclera white, no periorbital swelling. NECK: Full range of motion, nontender. LYMPH: No lymphadenopathy. CHEST: Normal to inspection and without deformities. CARDIOVASCULAR: S1 and S2 sounds normal. Bradycardia, no murmurs, clicks, or bruits. No pedal edema. Patient able to ambulate without syncope or dizziness. Patient was positive for orthostatic hypotensive blood pressure changes (40 mmHg drop in his systolic pressure from sitting to standing, positive complains of dizziness, but without heart rate changes as measured per nursing staff). During cardiac monitoring patient's rate ranged 30-49bpm, patient stated be low 45bpm for only 1-2 minutes and would return back to 47-48 bpm, this often occurred while the patient was sleeping or lying in bed, he did not complain of symptoms during this episode of extreme bradycardia. RESPIRATORY: Normal respiratory rate, trachea midline, airway patent. No stridor, nasal flaring or accessory muscle use. Lungs are clear in all ness without wheeze, rhonchi, or crackles. GASTROINTESTINAL: Bowel sounds normoactive. Abdomen is soft and non-tender. No organomegaly. Small umbilical hernia noted (approximately 3-5cm in diameter) this is reducible and nontender. MUSCULOSKELETAL: Normal gait and coordination. Equal tone and mass bilaterally. EXTREMITIES: CMS intact. Moves all extremities. SKIN: Warm, dry, soft, appropriate color for ethnicity. No lesions, rashes, or wounds. NEURO: Alert and Oriented X 3. CN III-XII intact. Good coordination. No ataxia, or sensory deficits, or cognitive issues. PSYCH: Appropriate affect and mood. <Giancarlo Dietrich DO - Last Filed: 06/15/19 19:41> Initial Vital Signs Initial Vital Signs: Vital Signs Temperature 99 F 06/15/19 12:00 Pulse Rate 46 L 06/15/19 12:00 Respiratory Rate 20 06/15/19 12:00 Blood Pressure 143/78 H 06/15/19 12:00 Pulse Oximetry 99 06/15/19 12:00 Scores <TG Mendez - Last Filed: 06/15/19 16:44> HEART Score Heart Score history: Slightly Suspicious Heart Score EKG: Normal Heart Score Age: > or = 65 years old Heart Score risk factors: 1-2 risk factors Heart Score troponin: < or = to normal limit Heart Score Total: 3 Course <JOSELYN MendezP - Last Filed: 06/15/19 16:44> Course Narrative: During the course of his stay in the emergency department who noted to have 2 episodes of bradycardia down to 30bpm which lasted less than 2 minutes and occurred when the patient was lying down or asleep. During these episodes patient denied any symptoms. Orthostatic blood pressures were taken, he was noted to have a systolic blood pressure dropped of about 40mmHg from sitting to standing with associated dizziness and no change in heart rate. When standing for a few minutes patient stated the symptoms went away, he was able to ambulate around the department without symptoms, during ambulation his heart rate was noted to be 61-58s. The entire time patient denied chest pain or shortness of breath. He stated he was taking his metoprolol as directed-1 pill daily and the dose had not been change in some time. The only other factor that occurred today was the bee stings and his consumption of 75mg of Benadryl. After consultation, patient was admitted to observation. Orders Ordered: ED Orders 06/15/19 12:21 EKG-12 Lead Stat 06/15/19 12:47 Complete Blood Count AUTO DIFF Stat Comprehensive Metabolic Panel Stat Partial Thromboplastin Time Stat Prothrombin Time INR Stat Troponin & CK Cardiac Panel Stat 06/15/19 16:30 Education, smoking cessation ONGOING Enoxaparin Sodium (Lovenox) 40 mg SUBCUT DAILY [facility] Last Admin: 06/15/19 17:30 Dose: 40 mg Finasteride (Proscar) 5 mg PO QPM [facility] Fluticasone Propionate (Flonase) 1 spray NASAL BID PRN PRN Reason: Allergy Symptoms Ibuprofen (Advil) 600 mg PO Q6H PRN PRN Reason: pain Levothyroxine Sodium (Synthroid) 50 mcg PO 0600 [facility] Pimecrolimus [Elidel (] 1 Appl) 1 applictn TOP BID [facility] Dextroamphetamine- Amphetamine [ Adderall Xr] 60 Mg 60 mg PO DAILY [facility] Pantoprazole Sodium (Protonix) 20 mg PO DAILY [facility] Paroxetine HCl (Paxil) 60 mg PO QPM [facility] Tamsulosin HCl (Flomax) 0.8 mg PO QPM [facility] Triamcinolone Acetonide (Kenalog 0.1% Cream) 1 applic TOP BID [facility] Reevaluation(s) Reevaluation #1: Patient was re-evaluated after his ambulation trial, he denies any symptoms. Consultations Consultation #1: Spoke with Dr. Ramesh about patient's bradycardia and change in orthostatic blood pressure upon standing, who recommended admission to observation with telemetry, but requested he be admitted to [facility]. Additionally, his next does of metoprolol is to be held tomorrow. Nursing staff and patient aware of admission and medication hold. Time: 13:50 Consultation #2: Patient staffed with Dr. Dietrich. Time: 12:00 Vital Signs - 8 hr 06/15/19 12:00 06/15/19 13:00 06/15/19 13:40 Temperature 99 F Pulse Rate 46 L 49 L 48 L Respiratory Rate 20 20 Blood Pressure 143/78 H Blood Pressure [Right Arm] 131/72 105/69 Pulse Oximetry 99 100 100 06/15/19 16:24 06/15/19 18:41 Temperature 97.5 F L Pulse Rate 49 L Respiratory Rate 18 Blood Pressure 111/45 L Blood Pressure [Right Arm] Pulse Oximetry 99 99 <Giancarlo Dietrich, DO - Last Filed: 06/15/19 19:41> Orders Ordered: ED Orders 06/15/19 12:21 EKG-12 Lead Stat 06/15/19 12:47 Complete Blood Count AUTO DIFF Stat Comprehensive Metabolic Panel Stat Partial Thromboplastin Time Stat Prothrombin Time INR Stat Troponin & CK Cardiac Panel Stat 06/15/19 16:30 Education, smoking cessation ONGOING Enoxaparin Sodium (Lovenox) 40 mg SUBCUT DAILY [facility] Last Admin: 06/15/19 17:30 Dose: 40 mg Finasteride (Proscar) 5 mg PO QPM [facility] Fluticasone Propionate (Flonase) 1 spray NASAL BID PRN PRN Reason: Allergy Symptoms Ibuprofen (Advil) 600 mg PO Q6H PRN PRN Reason: pain Levothyroxine Sodium (Synthroid) 50 mcg PO 0600 [facility] Pimecrolimus [Elidel (] 1 Appl) 1 applictn TOP BID [facility] Dextroamphetamine- Amphetamine [ Adderall Xr] 60 Mg 60 mg PO DAILY [facility] Pantoprazole Sodium (Protonix) 20 mg PO DAILY [facility] Paroxetine HCl (Paxil) 60 mg PO QPM [facility] Tamsulosin HCl (Flomax) 0.8 mg PO QPM [facility] Triamcinolone Acetonide (Kenalog 0.1% Cream) 1 applic TOP BID [facility] Vital Signs - 8 hr 06/15/19 12:00 06/15/19 13:00 06/15/19 13:40 Temperature 99 F Pulse Rate 46 L 49 L 48 L Respiratory Rate 20 20 Blood Pressure 143/78 H Blood Pressure [Right Arm] 131/72 105/69 Pulse Oximetry 99 100 100 06/15/19 16:24 06/15/19 18:41 Temperature 97.5 F L Pulse Rate 49 L Respiratory Rate 18 Blood Pressure 111/45 L Blood Pressure [Right Arm] Pulse Oximetry 99 99 MDM - Allergic Reaction <Fior TG Thompson - Last Filed: 06/15/19 16:44> Medical Records Attestation: I reviewed the patient's medical records. Lab Data Attestation: I reviewed the patient's lab results. Result diagrams: 06/15/19 12:47 06/15/19 12:47 Lab Results 06/15/19 06/15/19 06/15/19 Range/Units 12:47 12:47 12:47 WBC 4.1 L (4.5-11.0) X10^3/uL RBC 4.60 (4.5-5.9) X10^6/uL Hgb 13.6 (13.5-17.5) g/dL Hct 40.4 L (41-53) % MCV 87.9 (80-100) fL MCH 29.5 (26-34) PG MCHC 33.6 (30-36) % RDW 13.2 (11.6-14.8) % Plt Count 237 (150-400) X10^3/uL Neut % (Auto) 81.5 H (50-75) % Lymph % (Auto) 12.9 L (25-40) % [place] % (Auto) 4.2 (3-14) % Eos % (Auto) 1.1 L (2-4) % Baso % (Auto) 0.3 (0-2) % Neut # (Auto) 3300 (2376-1494) /uL Lymph # (Auto) 500 L (8919-7556) /uL [place] # (Auto) 200 (0-900) /uL Eos # (Auto) 0 (0-450) /uL Baso # (Auto) 0 (0-100) /uL PT 12.1 (10.1-12.7) SECONDS INR 1.0 (0.9-1.3) APTT 30 (26.4-36.2) SECONDS Sodium 140 (137-145) mmol/L Potassium 3.9 (3.4-5.1) mmol/L Chloride 107 (98-107) mmol/L Carbon Dioxide 25 (22-32) mmol/L BUN 23 H (9-20) mg/dL Creatinine 1.10 (0.66-1.25) mg/dL Estimated GFR > 60.0 (>60) mL/min BUN/Creatinine Ratio 20.9 (6-22) Glucose 120 H (80-110) mg/dL Calcium 8.9 (8.4-10.2) mg/dL Total Bilirubin 0.7 (0.2-1.3) mg/dL AST 15 L (17-59) IU/L ALT 17 L (21-72) IU/L Alkaline Phosphatase 57 (38-126) U/L Total Creatine Kinase 69 (55-170) U/L CK-MB (CK-2) TNP CK-MB (CK-2) Rel Index TNP Troponin I < 0.012 (0.01-0.034) ng/mL Total Protein 6.6 (6.3-8.2) g/dL Albumin 3.7 (3.5-5.0) g/dL Globulin 2.9 (1.7-4.1) g/dL Albumin/Globulin Ratio 1.3 (1.0-2.8) ECG Data Interpretation: Sinus bradycardia, rate 48, OR interval 191, QTC 418, no ST elevation or ST depression, T-wave inversion, no ectopy. EKG was also viewed by Dr. Dietrich. [facility] Narrative Medical decision making narrative: While patient's heart rate is normally below 60, according to his previous min visit over the past 2 years his rate appears to range from 58-60. I did not find any heart rate measurements noted below 50 which she has exhibited throughout the emergency department today. SA node dysfunction versus medication induced bradycardia (currently on metoprolol). Less likely hypertension related to anaphylaxis due to lack of other symptoms such as swelling, angioedema, hives, flushing, erythema, swelling at the site, history of anaphylaxis, and delayed response of syncope (40-50 minutes). Less likely vagal activity as patient was asleep during these events, less likely GA due to negative cardiac enzymes and normal EKG. Concerned about episodes of heart rate, after consultation it was decided that patient was best admitted for observation on telemetry. <Giancarlo Dietrich, - Last Filed: 06/15/19 19:41> Lab Data Lab Results 06/15/19 06/15/19 06/15/19 Range/Units 12:47 12:47 12:47 WBC 4.1 L (4.5-11.0) X10^3/uL RBC 4.60 (4.5-5.9) X10^6/uL Hgb 13.6 (13.5-17.5) g/dL Hct 40.4 L (41-53) % MCV 87.9 (80-100) fL MCH 29.5 (26-34) PG MCHC 33.6 (30-36) % RDW 13.2 (11.6-14.8) % Plt Count 237 (150-400) X10^3/uL Neut % (Auto) 81.5 H (50-75) % Lymph % (Auto) 12.9 L (25-40) % [place] % (Auto) 4.2 (3-14) % Eos % (Auto) 1.1 L (2-4) % Baso % (Auto) 0.3 (0-2) % Neut # (Auto) 3300 (1849-5924) /uL Lymph # (Auto) 500 L (0141-9383) /uL [place] # (Auto) 200 (0-900) /uL Eos # (Auto) 0 (0-450) /uL Baso # (Auto) 0 (0-100) /uL PT 12.1 (10.1-12.7) SECONDS INR 1.0 (0.9-1.3) APTT 30 (26.4-36.2) SECONDS Sodium 140 (137-145) mmol/L Potassium 3.9 (3.4-5.1) mmol/L Chloride 107 (98-107) mmol/L Carbon Dioxide 25 (22-32) mmol/L BUN 23 H (9-20) mg/dL Creatinine 1.10 (0.66-1.25) mg/dL Estimated GFR > 60.0 (>60) mL/min BUN/Creatinine Ratio 20.9 (6-22) Glucose 120 H (80-110) mg/dL Calcium 8.9 (8.4-10.2) mg/dL Total Bilirubin 0.7 (0.2-1.3) mg/dL AST 15 L (17-59) IU/L ALT 17 L (21-72) IU/L Alkaline Phosphatase 57 (38-126) U/L Total Creatine Kinase 69 (55-170) U/L CK-MB (CK-2) TNP CK-MB (CK-2) Rel Index TNP Troponin I < 0.012 (0.01-0.034) ng/mL Total Protein 6.6 (6.3-8.2) g/dL Albumin 3.7 (3.5-5.0) g/dL Globulin 2.9 (1.7-4.1) g/dL Albumin/Globulin Ratio 1.3 (1.0-2.8) Discharge Plan Departure Patient Disposition: Admitted as Observation Clinical Impression: Bradycardia Syncope Qualifiers: Syncope type: unspecified Qualified Code(s): R55 - Syncope and collapse Discharge Date/Time: 06/15/19 15:42 Interventions: ED Discharge Assessment Last Done: 06/15/19 14:35 Admit Date/Time: 06/15/19 14:21 Admit Provider: Justin Ramesh <Giancarlo Dietrich DO - Last Filed: 06/15/19 19:41> Cosign ED Attending Rahul Attestation: I was immediately available in the department for consultation. Documentation has been reviewed. I agree with assessment and plan.
--- NOTE | 2019-06-15 12:32 | PC.NURSE ---
bee stings on the face, occured at 1030am, pt used benadryl spray, and took 3 capsules of benadryl.
--- NOTE | 2019-06-15 12:34 | PC.NURSE ---
continue infusing ns.
[2019-06-15 13:02] LABS: Add Manual Diff / Slide Review NO; Basophils Absolute Auto 0 /uL (0-100); Basophils Percent Auto 0.3 % (0-2); Eosinophils Absolute Auto 0 /uL (0-450); Eosinophils Percent Auto 1.1 % (2-4); Hematocrit 40.4 % (41-53); Hemoglobin 13.6 g/dL (13.5-17.5); Lymphocytes Absolute Auto 500 /uL (1100-4500); Lymphocytes Percent Auto 12.9 % (25-40); Mean Corpuscular HGB Conc 33.6 % (30-36); Mean Corpuscular Hemoglobin 29.5 PG (26-34); Mean Corpuscular Volume 87.9 fL (80-100); Monocytes Absolute Auto 200 /uL (0-900); Monocytes Percent Auto 4.2 % (3-14); Neutrophils Absolute Auto 3300 /uL (1500-7000); Neutrophils Percent Auto 81.5 % (50-75); Platelet Count 237 X10^3/uL (150-400); Red Cell Distribution Width 13.2 % (11.6-14.8); White Blood Cell Count 4.1 X10^3/uL (4.5-11.0)
[2019-06-15 13:09] LABS: Prothrombin Time 12.1 SECONDS (10.1-12.7)
[2019-06-15 13:11] LABS: PTT Partial Thromboplastin Tim 30 SECONDS (26.4-36.2)
[2019-06-15 13:14] LABS: Alanine Aminotransferase 17 IU/L (21-72); Albumin 3.7 g/dL (3.5-5.0); Albumin Globulin Ratio 1.3 (1.0-2.8); Alkaline Phosphatase 57 U/L (38-126); Aspartate Aminotransferase 15 IU/L (17-59); BUN Creatinine Ratio 20.9 (6-22); Bilirubin Total 0.7 mg/dL (0.2-1.3); Blood Urea Nitrogen 23 mg/dL (9-20); Calcium 8.9 mg/dL (8.4-10.2); Carbon Dioxide 25 mmol/L (22-32); Chloride 107 mmol/L (98-107); Creatine Kinase 69 U/L (55-170); Estimated Glomerular Filt Rate > 60.0 mL/min (>60); Globulin 2.9 g/dL (1.7-4.1); Glucose 120 mg/dL (80-110); HEMOLYSIS < 15 (0-50); Potassium 3.9 mmol/L (3.4-5.1); Sodium 140 mmol/L (137-145); Total Protein 6.6 g/dL (6.3-8.2)
[2019-06-15 13:24] LABS: Troponin I < 0.012 ng/mL (0.01-0.034)
--- NOTE | 2019-06-15 15:36 | PC.NURSE ---
at 1320 pt ambulated around ED, pt hr started at 50 and went up to 65 bpm while ambulating.
[2019-06-15] MEDS: ENOXAPARIN 40 MG/0.4 ML SYRINGE SUBCUT (17:30)
--- NOTE | 2019-06-15 18:05 | P.HP_ITS ---
History of Present Illness Date Patient Seen: 06/15/19 Time Patient Seen: 17:58 Chief complaint: Syncope Narrative: Syncope. Patient admitted to [facility] for overnight observation for syncope. Patient was in his usual state of health this morning approximately 10 30 was stung by a yellow jacket on his nose and on the top of his head. He apparently has had some significant local reactions to insect sting his in the past. He has some Benadryl spray placed on his nose and scalp did seem to help much. He walked next door to his neighbor who is an RN. She gave him 75 mg of Dl adryl. He was having no chest pain no shortness of breath or palpitation no itching no breathing problems at otherwise felt fine. He is sitting in a chair and suddenly began to feel ?weird? somewhat vague he also had some visual changes like bright light etc. He has stood up for unknown reason. The next thing he recalls is laying on the ground and they are in his talking to him saying ?[place] doing?. She apparently had difficult time getting blood pressure and heart rate found to be slow a l ooked pale and began to get diaphoretic. She called the paramedics. Apparently they came on the scene found him to have low blood pressure and slow heart rate game some IV fluids and brought her to the ER. He was evaluated in the ER and felt to be in no acute distress but was found to be significantly bradycardic. Evaluation and laboratory studies etc in the ER were negative. He is evaluated and admitted on telemetry for all op overnight observation for presumed bradycardia. Currently has no complaints feels normal minimal amount of pain from his insect stings no itching no breathing problems. Patient is on metoprolol for his high blood pressure and apparently has been on this for years. Currently taking 50 mg daily Patient History Medical History ADD (attention deficit disorder) (Chronic) Acute meniscal tear of right knee (Chronic) Benign prostatic hyperplasia (Chronic) Bipolar disorder (Chronic) History of psychosis (Chronic) Hypertension (Chronic) Surgical History Status post arthroscopy (~1984) Family History Mother CAD (coronary artery disease) Myocardial infarct Ovarian cancer, unspecified laterality Father Cirrhosis Lung cancer Family/Other Dementia Social History household members: none Smoking Status: Never smoker alcohol intake: never Family & Social History Family History Mother CAD (coronary artery disease) Myocardial infarct Ovarian cancer, unspecified laterality Father Cirrhosis Lung cancer Family/Other Dementia Social History: household members none Prior Living Arrangements House Safety & Behavioral: Feels Safe in Current Yes Environment Been Physically Hurt or No Threatened By a Person Suicidal Ideation Description None Suicide Plan Description No Plan Tobacco & Substance use: Smoking Status Never smoker alcohol intake never alcohol intake frequency 0-2 drinks per day Substance Use Type does not use Meds Home Medications Medication Instructions Recorded Confirmed Type finasteride 5 mg tablet 5 mg PO QPM 12/03/18 06/15/19 History tamsulosin 0.4 mg capsule 0.8 mg PO QPM cap 12/03/18 06/15/19 History ibuprofen 600 mg tablet 600 mg PO Q6HP PRN #90 tab 12/14/18 06/15/19 Rx omeprazole 20 mg capsule,delayed 20 mg PO DAILY #30 cap 05/27/19 06/15/19 Rx release triamcinolone acetonide 0.1 % 1 applictn TOP BID #15 gram 05/27/19 06/15/19 Rx topical cream pimecrolimus 1 % topical cream 1 applictn TOP BIDP #1 tube 06/02/19 06/15/19 Rx dextroamphetamine-amphetamine 60 mg PO DAILY 06/15/19 06/15/19 History [Adderall XR] fluticasone propionate 1 spray INTRANASAL BID PRN 06/15/19 06/15/19 History levothyroxine 50 mcg PO DAILY 06/15/19 06/15/19 History metoprolol succinate [Toprol XL] 50 mg PO QPM 06/15/19 06/15/19 History paroxetine HCl [Paxil] 60 mg PO QPM 06/15/19 06/15/19 History Allergies Allergy/AdvReac Type Severity Reaction Status Date / Time enalapril [ENALAPRIL] Allergy Severe TONGUE Verified 05/27/19 15:46 SWELLS amlodipine [AMLODIPINE] Allergy Mild LEG Verified 05/27/19 15:46 SWELLING lisinopril [LISINOPRIL] Allergy Mild DIARRHEA Verified 05/27/19 15:46 acetaminophen [From PERCOCET] AdvReac Intermediate itching Verified 05/27/19 15:46 oxycodone [From PERCOCET] AdvReac Intermediate itching Verified 05/27/19 15:46 Review of Systems Review of Systems All systems reviewed & are unremarkable except as noted in HPI and below Exam Vital Signs (past 8 hours): - 06/15/19 12:00 06/15/19 13:00 06/15/19 13:40 Temperature 99 F Pulse Rate 46 L 49 L 48 L Respiratory Rate 20 20 Blood Pressure 143/78 H Blood Pressure [Right Arm] 131/72 105/69 Pulse Oximetry 99 100 100 06/15/19 16:24 Temperature 97.5 F L Pulse Rate 49 L Respiratory Rate 18 Blood Pressure 111/45 L Blood Pressure [Right Arm] Pulse Oximetry 99 Oxygen Delivery Method Room Air Narrative Exam Narrative: The patient is examined in his hospital bed resting quietly appears in no distress. Gen.: He looks well and is conversant Skin: Warm well perfused. No prominent lesions. Nonicteric. HEENT: PERRL., normal EOM, external ears canals TMs normal, nasal mucosa normal and midline septum, oropharynx without lesions. Neck: Trachea midline. Thyroid nontender and not enlarged. Carotids without bruits. No lymphadenopathy Back: No obvious deformity or tenderness. Chest: Clear to P&A. Symmetric. CV: RRR no murmur or gallop. No JVD. Abdomen: No masses bruits tenderness or visceromegaly. Neuro: Cranial nerves II through XII grossly intact. Sensory and motor exams intact. Gait normal. Mental status: Intact for screening Extremities: No cyanosis clubbing or edema Musculoskeletal: No gross deformities Lymphatics: Negative for lymphadenopathy, supraclavicular axillary or inguinal Objective Labs Result Diagrams: 06/15/19 12:47 06/15/19 12:47 Labs: Laboratory Results - last 24 hr 06/15/19 06/15/19 06/15/19 12:47 12:47 12:47 WBC 4.1 L RBC 4.60 Hgb 13.6 Hct 40.4 L MCV 87.9 MCH 29.5 MCHC 33.6 RDW 13.2 Plt Count 237 Neut % (Auto) 81.5 H Lymph % (Auto) 12.9 L [place] % (Auto) 4.2 Eos % (Auto) 1.1 L Baso % (Auto) 0.3 Neut # (Auto) 3300 Lymph # (Auto) 500 L [place] # (Auto) 200 Eos # (Auto) 0 Baso # (Auto) 0 PT 12.1 INR 1.0 APTT 30 Sodium 140 Potassium 3.9 Chloride 107 Carbon Dioxide 25 BUN 23 H Creatinine 1.10 Estimated GFR > 60.0 BUN/Creatinine Ratio 20.9 Glucose 120 H Calcium 8.9 Total Bilirubin 0.7 AST 15 L ALT 17 L Alkaline Phosphatase 57 Total Creatine Kinase 69 CK-MB (CK-2) TNP CK-MB (CK-2) Rel Index TNP Troponin I < 0.012 Total Protein 6.6 Albumin 3.7 Globulin 2.9 Albumin/Globulin Ratio 1.3 Lab studies from the emergency room reviewed and are normal Assessment & Plan Assessment & Plan narrative: 1. Apparent syncope. Etiology unclear but likely due to the bradycardia. Bradycardia likely be secondary to his beta capri. Perhaps contributed to would the Benadryl and perhaps some residual from the insects teens. Patient also apparently was dehydrated with elevated BUN. Given the timing of his apparent syncope event and the inset things is unlikely that that is ache anaphylactic reaction. Most likely it is from bradycardia and most likely that is from his metoprolol. 2. Insect stings are relatively minor at this time. 3. Hypertension management needs to be reassessed. 4. His attention deficit disorder being managed with 30 mg of Adderall. 5. Hypothyroidism stable. 6. History of BPH being treated. 7. Recent onset of reflux symptoms being treated with omeprazole. Patient will be continued on his baseline medications with exception of metoprolol this will be withheld reassess blood pressure management terminal [address] Avila return. He will be on telemetry over night for monitoring and presumably will be discharged. Yet to be determined whether further workup will be necessary Quality VTE Deep Vein Thrombosis/Pulmonary Embolism Present on Admission: No
[2019-06-15] MEDS: PARoxetine 20 MG TABLET 60 MG PO (22:26)
[2019-06-15] MEDS: TAMSULOSIN 0.4 MG CAPSULE 0.8 MG PO (22:26)
[2019-06-15] MEDS: FINASTERIDE 5 MG TABLET PO (22:27)
--- NOTE | 2019-06-15 23:56 | PC.NURSE ---
Addendum entered by Felicity Xiong R.N. 06/16/19 06:00: States he slept at intervals. Assisted up to bathroom this morning to urinate (used urinal during the night). Last telemetry reading was SB with rate of 53. Original Note: Patient is alert and oriented. Breath sounds CTA with RA sat of 95%. HRR but bradycardic at 47bpm; on telemetry. Denies feeling dizzy or lightheaded. Denies nausea. BT present and abdomen is soft. Has been getting up to bathroom but due to low HR and recent fall requested of patient that he ask for assistance whenever getting out of bed; verbalizes understanding. Provided urinal for night voiding. Denies dysuria, urgency or incontinence but states he urinates nearly every hour. Able to turn self in bed. Complains of discomfort in right hip/buttock where I hit when I fell; bruising noted. Fall risk score is high related to recent fall and bed alarm is activated.
[2019-06-16 04:32] VITALS: BP 112/61; PULSE 52; RESP 18; TEMP 36.5; O2SAT 92
[2019-06-16] MEDS: LEVOTHYROXINE 50 MCG TABLET PO (05:54)
[2019-06-16 07:40] VITALS: BP 127/74; PULSE 54; RESP 18; TEMP 36.4; O2SAT 97
--- NOTE | 2019-06-16 07:52 | PM.DS.1 ---
History of Present Illness Date Patient Seen: 06/16/19 Time Patient Seen: 07:53 Chief complaint: Syncope Narrative: From H&P by Dr. Ramesh 06/15/[address] [facility] for overnight observation for syncope. Patient was in his usual state of health this morning approximately 10 30 was stung by a yellow jacket on his nose and on the top of his head. He apparently has had some significant local reactions to insect sting his in the past. He has some Benadryl spray placed on his nose and scalp did seem to help much. He walked next door to his neighbor who is an RN. She gave him 75 mg of Benadryl. He was having no chest pain no shortness of breath or palpitation no itching no breathing problems at otherwise felt fine. He is sitting in a chair and suddenly began to feel ?weird? somewhat vague he also had some visual changes like bright light etc. He has stood up for unknown reason. The next thing he recalls is laying on the ground and they are in his talking to him saying ?[place] doing?. She apparently had difficult time getting blood pressure and heart rate found to be slow a looked pale and began to get diaphoretic. She called the paramedics. Apparently they came on the scene found him to have low blood pressure and slow heart rate game some IV fluids and brought her to the ER. He was evaluated in the ER and felt to be in no acute distress but was found to be significantly bradycardic. Evaluation and laboratory studies etc in the ER were negative. He is evaluated and admitted on telemetry for all op overnight observation for presumed bradycardia. Currently has no complaints feels normal minimal amount of pain from his insect stings no itching no breathing problems. Patient is on metoprolol for his high blood pressure and apparently has been on this for years. Currently taking 50 mg daily Discharge Providers Date of admission: 06/15/19 14:21 Discharge Date: 06/16/19 Primary care physician: Fatuma Mendoza DO Discharge provider: Fatuma Mendoza DO Summary Discharge Diagnosis: Syncope Vasovagal Bradycardia Insect stings Hypertension ADD Hypothyroid BPH GERD Hospital Course: 1. Syncope. Vasovagal, less likely anaphylaxis. Worsened because of baseline bradycardia secondary to his beta capri. Perhaps contributed to by Benadryl and an interaction with his paxil. Patient reports not eating or drinking yet that day and was dehydrated with elevated BUN. 2. Insect stings have essentially resolved. Will give him an epipen to use until we can have him evaluated by an metal bonder to determine his true response to bee strings. 3. Hypertension management will be reasses outpatient. He will bring his blood pressure log to follow up. Stop metoprolol. Will consider further workup with von at that time. 4. His attention deficit disorder being managed with 30 mg of Adderall. 5. Hypothyroidism stable. 6. BPH treated. 7. reflux symptoms being treated with omeprazole. Code status: full code, has POLST form and will review to be completed as outpatient DVT prophylaxis: enoxaparin Status at Discharge Cognitive/behavioral status at discharge: at baseline, oriented Functional status at discharge: independent ambulation Overall status at discharge: patient is back to baseline Time Spent with Patient Less than 30 minutes Exam Vital Signs (past 8 hours): - 06/16/19 04:32 Temperature 97.7 F Pulse Rate 52 L Respiratory Rate 18 Blood Pressure 112/61 Pulse Oximetry 92 Oxygen Delivery Method Room Air Oxygen Flow Rate 0 Narrative Exam Narrative: General: Well-developed, well-nourished, male, no acute distress. Heart: Regular rate and rhythm, no murmurs appreciated Lungs: Clear to auscultation bilaterally, no wheezes, rales or rhonchi Extremities: Warm and well perfused, no edema Skin: No induration or redness at the bite sites Objective Labs Result Diagrams: 06/15/19 12:47 06/15/19 12:47 Labs: Laboratory Results - last 24 hr 06/15/19 06/15/19 06/15/19 12:47 12:47 12:47 WBC 4.1 L RBC 4.60 Hgb 13.6 Hct 40.4 L MCV 87.9 MCH 29.5 MCHC 33.6 RDW 13.2 Plt Count 237 Neut % (Auto) 81.5 H Lymph % (Auto) 12.9 L [place] % (Auto) 4.2 Eos % (Auto) 1.1 L Baso % (Auto) 0.3 Neut # (Auto) 3300 Lymph # (Auto) 500 L [place] # (Auto) 200 Eos # (Auto) 0 Baso # (Auto) 0 PT 12.1 INR 1.0 APTT 30 Sodium 140 Potassium 3.9 Chloride 107 Carbon Dioxide 25 BUN 23 H Creatinine 1.10 Estimated GFR > 60.0 BUN/Creatinine Ratio 20.9 Glucose 120 H Calcium 8.9 Total Bilirubin 0.7 AST 15 L ALT 17 L Alkaline Phosphatase 57 Total Creatine Kinase 69 CK-MB (CK-2) TNP CK-MB (CK-2) Rel Index TNP Troponin I < 0.012 Total Protein 6.6 Albumin 3.7 Globulin 2.9 Albumin/Globulin Ratio 1.3 Discharge Plan Discharge Plan Patient Disposition: Home Discharge comment: Stop taking metoprolol. 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 Monitor blood pressure and pulse and keep a log. Discharge Med Rec/Prescriptions Prescriptions: New epinephrine [EpiPen 2-Valentín] 0.3 mg/0.3 mL auto-injector 0.3 mg IM Q10M PRN (Reason: anaphylaxis) Qty: 2 RF: 0 Continued ibuprofen 600 mg tablet 600 mg PO Q6HP PRN (Reason: pain) Qty: 90 RF: 3 triamcinolone acetonide 0.1 % cream 1 applictn TOP BID Qty: 15 RF: 0 pimecrolimus [Elidel] 1 % cream 1 applictn TOP BIDP Qty: 1 RF: 1 finasteride 5 mg tablet 5 mg PO QPM RF: 0 tamsulosin 0.4 mg capsule 0.8 mg PO QPM RF: 0 omeprazole 20 mg capsule,delayed release(DR/EC) 20 mg PO DAILY Qty: 30 RF: 1 levothyroxine 50 mcg tablet 50 mcg PO DAILY RF: 0 paroxetine HCl [Paxil] 40 mg tablet 60 mg PO QPM RF: 0 dextroamphetamine-amphetamine [Adderall XR] 30 mg capsule,extended release 24hr 60 mg PO DAILY RF: 0 fluticasone propionate 50 mcg/actuation spray,suspension 1 spray Intranasal BID PRN (Reason: Allergy Symptoms) RF: 0 Discontinued metoprolol succinate [Toprol XL] 50 mg tablet extended release 24 hr 50 mg PO QPM RF: 0 Follow up/Referrals: Fatuma Mendoza DO [Primary Care Provider] - 07/07/19 4:30 pm Provider Discharge Instructions Diet: Diet as Tolerated Skin/Wound/Dressing Care Report to your healthcare provider any signs of infection, such as:: chills, fever, increased pain and unusual redness Discharge Data Primary Care Provider: Fatuma Mendoza Attending Provider: Fatuma Mendoza Admit Date/Time: 06/15/19 14:21 Quality VTE Deep Vein Thrombosis/Pulmonary Embolism Present on Admission: No
--- NOTE | 2019-06-16 07:55 | P.DS_ITS ---
History of Present Illness Date Patient Seen: 06/16/19 Time Patient Seen: 07:53 Chief complaint: Syncope Narrative: From H&P by Dr. Ramesh 06/15/2019 Patient admitted to [facility] for overnight observation for syncope. Patient was in his usual state of health this morning approximately 10 30 was stung by a yellow jacket on his nose and on the top of his head. He apparently has had some significant local reactions to insect sting his in the past. He has some Benadryl spray placed on his nose and scalp did seem to help much. He walked next door to his neighbor who is an RN. She gave him 75 mg of Benadryl. He was having no chest pain no shortness of breath or palpitation no itching no breathing problems at otherwise felt fine. He is sitting in a chair and suddenly began to feel ?weird? somewhat vague he also had some visual changes like bright light etc. He has stood up for unknown reason. The next thing he recalls is laying on the ground and they are in his talking to him saying ?[place] doing?. She apparently had difficult time getting blood pressure and heart rate found to be slow a looked pale and began to get diaphoretic. She called the paramedics. Apparently they came on the scene found him to have low blood pressure and slow heart rate game some IV fluids and brought her to the ER. He was evaluated in the ER and felt to be in no acute distress but was found to be significantly bradycardic. Evaluation and laboratory studies etc in the ER were negative. He is evaluated and admitted on telemetry for all op overnight observation for presumed bradycardia. Currently has no complaints feels normal minimal amount of pain from his insect stings no itching no breathing problems. Patient is on metoprolol for his high blood pressure and apparently has been on this for years. Currently taking 50 mg daily Discharge Providers Date of admission: 06/15/19 14:21 Discharge Date: 06/16/19 Primary care physician: Fatuma Mendoza DO Discharge provider: Fatuma Mendoza DO Summary Discharge Diagnosis: Syncope Vasovagal Bradycardia Insect stings Hypertension ADD Hypothyroid BPH GERD Hospital Course: 1. Syncope. Vasovagal, less likely anaphylaxis. Worsened because of baseline bradycardia secondary to his beta capri. Perhaps co ntributed to by Benadryl and an interaction with his paxil. Patient reports not eating or drinking yet that day and was dehydrated with elevated BUN. 2. Insect stings have essentially resolved. Will give him an epipen to use until we can have him evaluated by an city route driver to determine his true response to bee strings. 3. Hypertension management will be reasses outpatient. He will bring his blood pressure log to follow up. Stop metoprolol. Will consider further workup with von at that time. 4. His attention deficit disorder being managed with 30 mg of Adderall. 5. Hypothyroidism stable. 6. BPH treated. 7. reflux symptoms being treated with omeprazole. Code status: full code, has POLST form and will review to be completed as outpatient DVT prophylaxis: enoxaparin Status at Discharge Cognitive/behavioral status at discharge: at baseline, oriented Functional status at discharge: independent ambulation Overall status at discharge: patient is back to baseline Time Spent with Patient Less than 30 minutes Exam Vital Signs (past 8 hours): - 06/16/19 04:32 Temperature 97.7 F Pulse Rate 52 L Respiratory Rate 18 Blood Pressure 112/61 Pulse Oximetry 92 Oxygen Delivery Method Room Air Oxygen Flow Rate 0 Narrative Exam Narrative: General: Well-developed, well-nourished, male, no acute distress. Heart: Regular rate and rhythm, no murmurs appreciated Lungs: Clear to auscultation bilaterally, no wheezes, rales or rhonchi Extremities: Warm and well perfused, no edema Skin: No induration or redness at the bite sites Objective Labs Result Diagrams: 06/15/19 12:47 06/15/19 12:47 Labs: Laboratory Results - last 24 hr 06/15/19 06/15/19 06/15/19 12:47 12:47 12:47 WBC 4.1 L RBC 4.60 Hgb 13.6 Hct 40.4 L MCV 87.9 MCH 29.5 MCHC 33.6 RDW 13.2 Plt Count 237 Neut % (Auto) 81.5 H Lymph % (Auto) 12.9 L [place] % (Auto) 4.2 Eos % (Auto) 1.1 L Baso % (Auto) 0.3 Neut # (Auto) 3300 Lymph # (Auto) 500 L [place] # (Auto) 200 Eos # (Auto) 0 Baso # (Auto) 0 PT 12.1 INR 1.0 APTT 30 Sodium 140 Potassium 3.9 Chloride 107 Carbon Dioxide 25 BUN 23 H Creatinine 1.10 Estimated GFR > 60.0 BUN/Creatinine Ratio 20.9 Glucose 120 H Calcium 8.9 Total Bilirubin 0.7 AST 15 L ALT 17 L Alkaline Phosphatase 57 Total Creatine Kinase 69 CK-MB (CK-2) TNP CK-MB (CK-2) Rel Index TNP Troponin I < 0.012 Total Protein 6.6 Albumin 3.7 Globulin 2.9 Albumin/Globulin Ratio 1.3 Discharge Plan Discharge Plan Patient Disposition: Home Discharge comment: Stop taking metoprolol. 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 Monitor blood pressure and pulse and keep a log. Discharge Med Rec/Prescriptions Prescriptions: New epinephrine [EpiPen 2-Valentín] 0.3 mg/0.3 mL auto-injector 0.3 mg IM Q10M PRN (Reason: anaphylaxis) Qty: 2 RF: 0 Continued ibuprofen 600 mg tablet 600 mg PO Q6HP PRN (Reason: pain) Qty: 90 RF: 3 triamcinolone acetonide 0.1 % cream 1 applictn TOP BID Qty: 15 RF: 0 pimecrolimus [Elidel] 1 % cream 1 applictn TOP BIDP Qty: 1 RF: 1 finasteride 5 mg tablet 5 mg PO QPM RF: 0 tamsulosin 0.4 mg capsule 0.8 mg PO QPM RF: 0 omeprazole 20 mg capsule,delayed release(DR/EC) 20 mg PO DAILY Qty: 30 RF: 1 levothyroxine 50 mcg tablet 50 mcg PO DAILY RF: 0 paroxetine HCl [Paxil] 40 mg tablet 60 mg PO QPM RF: 0 dextroamphetamine-amphetamine [Adderall XR] 30 mg capsule,extended release 24hr 60 mg PO DAILY RF: 0 fluticasone propionate 50 mcg/actuation spray,suspension 1 spray Intranasal BID PRN (Reason: Allergy Symptoms) RF: 0 Discontinued metoprolol succinate [Toprol XL] 50 mg tablet extended release 24 hr 50 mg PO QPM RF: 0 Follow up/Referrals: Fatuma Mendoza DO [Primary Care Provider] - 07/07/19 4:30 pm Provider Discharge Instructions Diet: Diet as Tolerated Skin/Wound/Dressing Care Report to your healthcare provider any signs of infection, such as:: chills, fever, increased pain and unusual redness Discharge Data Primary Care Provider: Fatuma Mendoza Attending Provider: Fatuma Mendoza Admit Date/Time: 06/15/19 14:21 Quality VTE Deep Vein Thrombosis/Pulmonary Embolism Present on Admission: No
[2019-06-16] MEDS: PANTOPRAZOLE 20 MG TABLET PO (08:34)
--- NOTE | 2019-06-16 10:06 | CM.DANOTE ---
Discharge Planning/Care Management DCP: assessment: case received and discussed in Team Rounds. A d/c to home order was noted. EMR reviewed and then met with pt. Introduced self and role. Pt is a 68 year old male who admitted to care of [facility] phycian team yesterday and was seen by his PCP: DR. Mendoza today. Payer: Medicare and Medicaid. Pt confirms that he is feeling markedly better today and ready to go home. His friend RN Shivani Amador, who assisted him during the events that unfolded after his bee stings will be arriving later to pick him up. Left pt with SHERINE Matthew going over d/c paperwork with pt. CM Discharge Assessment Start: 06/16/19 10:05 Freq: Status: Active Protocol: Document 06/16/19 10:05 ITV (Rec: 06/16/19 10:06 ITV [id number]) Discharge Planning Assessment Advance Directives? No: POLST form provided History Provided By Patient Medical Record Prior Living Arrangements House Household Members none Independent with ADL's Yes Is patient alert and oriented? Yes Review Status In Process
--- NOTE | 2019-06-16 10:26 | PC.NURSE ---
Pt discharge to home. Denies dizziness, SOB, allergy symptoms. Tolerating meals and independently ambulating at time of discharge. Assessed for knowledge deficits, allowed time for questions. Inflormed pt to call primary provider for post discharge questions. Discharge instruction provided to pt. Assisted out of facility via wheelchair by MANUFACTURING TECHNICIAN with all belongings. Pt aware of follow up appt and to filler picker discharge medications at his pharmacy. Pt had all questions met at time of discharge.
== END 2019-06-16 10:20 | disposition home or self-care (01) ==
LOC: ED 14:19 → AC 14:22
PROVIDERS: Admitting Provider Family Medicine; Emergency Provider Nurse Practitioner; PCP Family Medicine; Visit Provider Family Medicine
DX: T63.441A Toxic effect of venom of bees, accidental (unintentional), initial encounter (principal); I10 Essential (primary) hypertension; R55 Syncope and collapse; R00.1 Bradycardia, unspecified; E03.9 Hypothyroidism, unspecified; N40.0 Benign prostatic hyperplasia without lower urinary tract symptoms; K21.9 Gastro-esophageal reflux disease without esophagitis
CPT/HCPCS: 36415; 80053; 82550; 84484; 85025; 85610; 85730; 93005; 99217; 99220; 99283; 99284; G0378; J1650

== ENCOUNTER → 2019-08-23 13:46 | Outpatient (CLI) | payer MEDICARE, MEDICAID, SELFPAY ==
[2019-06-23 09:40] VITALS: BMI 31.8
--- NOTE | 2019-09-10 16:21 | PM.CARDMON.1 ---
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 Referral & Results Date Patient Seen: 08/23/19 Requesting provider: Fatuma Mendoza Indication: Bradycardia Duration of monitoring (days): 6 Diary information: There was 1 patient diary entry and 1 patient triggered event associated with sinus rhythm and PACs Data: Minimum heart rate identified was 45 beats per minute at 04:55 on 08/25/2019 Maximum sinus heart rate was 131 beats per minute at 16:48 on 08/27/2019 Maximum overall heart rate was 182 beats per minute at 13:15 on 08/29/2019 during a 7 beat run of SVT Patient had 9 runs of SVT the longest lasting 11 beats at a rate of 109 beats per minute which suggest an atrial tachycardia rather than true SVT Less than 1% of identified beats or either ventricular supraventricular ectopic in origin Overall looking at patient's trans patient only extremely really had a heart rate less than 50 Impression: Patient with limited brief runs of SVT as above No other significant dysrhythmia identified, no worrisome bradycardia discovered on this study either
== END ==
PROVIDERS: PCP Family Medicine; Visit Provider Family Medicine
DX: R00.1 Bradycardia, unspecified (principal)
CPT/HCPCS: 0296T; 0298T

== ENCOUNTER → 2019-11-08 07:50 | Outpatient (CLI) | payer MEDICARE, MEDICAID, SELFPAY ==
[2019-06-23 09:40] VITALS: BMI 31.8
[2019-11-08 08:25] LABS: Alanine Aminotransferase 18 IU/L (<50); Albumin 4.3 g/dL (3.5-5.0); Albumin Globulin Ratio 1.3 (1.0-2.8); Alkaline Phosphatase 65 U/L (38-126); Aspartate Aminotransferase 25 IU/L (17-59); BUN Creatinine Ratio 22.2 (6-22); Bilirubin Total 0.7 mg/dL (0.2-1.3); Blood Urea Nitrogen 20 mg/dL (9-20); Calcium 9.4 mg/dL (8.4-10.2); Carbon Dioxide 28 mmol/L (22-32); Chloride 103 mmol/L (98-107); Cholesterol 188 mg/dL (140-199); Estimated Glomerular Filt Rate > 60.0 mL/min (>60); Globulin 3.3 g/dL (1.7-4.1); Glucose 107 mg/dL (80-110); HDL Cholesterol 45 mg/dL (40-60); HEMOLYSIS < 15 (0-50); LDL Cholesterol Calculated 127 mg/dL (<100); Potassium 4.1 mmol/L (3.4-5.1); Sodium 140 mmol/L (137-145); Total Protein 7.6 g/dL (6.3-8.2); Triglycerides 79 mg/dL (35-150)
[2019-11-08 09:01] LABS: TSH w/ Reflex to FT4 2.19 uIU/mL (0.47-4.68)
== END ==
PROVIDERS: PCP Family Medicine; Visit Provider Family Medicine
DX: E03.9 Hypothyroidism, unspecified (principal); E78.5 Hyperlipidemia, unspecified; I10 Essential (primary) hypertension; R00.1 Bradycardia, unspecified; R73.01 Impaired fasting glucose
CPT/HCPCS: 36415; 80053; 80061; 84443

== ENCOUNTER → 2020-12-12 13:40 | Outpatient (CLI) | payer MEDICARE, MEDICAID, SELFPAY ==
[2019-06-23 09:40] VITALS: BMI 31.8
[2020-12-12] MEDS: COVID-19 VACC #1, MRNA(MOD) 100 MCG/0.5 ML VIAL IM (13:46)
== END ==
PROVIDERS: PCP Family Medicine; Visit Provider Internal Medicine
DX: Z23 Encounter for immunization (principal)
CPT/HCPCS: 0011A; 91301

== ENCOUNTER → 2021-01-09 13:36 | Outpatient (CLI) | payer MEDICARE, MEDICAID, SELFPAY ==
[2019-06-23 09:40] VITALS: BMI 31.8
[2021-01-09] MEDS: COVID-19 VACC #2, MRNA(MOD) 100 MCG/0.5 ML VIAL IM (13:46)
== END ==
PROVIDERS: PCP Family Medicine; Visit Provider Internal Medicine
DX: Z23 Encounter for immunization (principal)
CPT/HCPCS: 0012A; 91301

== ENCOUNTER → 2022-12-13 10:54 | Outpatient (CLI) | payer MEDICARE, MEDICAID, SELFPAY ==
[2019-06-23 09:40] VITALS: BMI 31.8
[2022-12-13 12:23] LABS: Add Manual Diff / Slide Review NO; Basophils Absolute Auto 100 /uL (0-100); Basophils Percent Auto 1.1 % (0-2); Eosinophils Absolute Auto 200 /uL (0-450); Eosinophils Percent Auto 3.3 % (2-4); Hematocrit 46.1 % (41-53); Hemoglobin 15.5 g/dL (13.5-17.5); Lymphocytes Absolute Auto 1400 /uL (1100-4500); Lymphocytes Percent Auto 25.3 % (25-40); Mean Corpuscular HGB Conc 33.6 % (30-36); Mean Corpuscular Hemoglobin 28.7 PG (26-34); Mean Corpuscular Volume 85.5 fL (80-100); Monocytes Absolute Auto 500 /uL (0-900); Neutrophils Absolute Auto 3500 /uL (1500-7000); Neutrophils Percent Auto 61.3 % (50-75); Platelet Count 331 X10^3/uL (150-400); Red Blood Cell Count 5.39 X10^6/uL (4.5-5.9); Red Cell Distribution Width 14.8 % (11.6-14.8); White Blood Cell Count 5.7 X10^3/uL (4.5-11.0)
[2022-12-13 12:25] LABS: Hemoglobin A1C% w Est Avg Glu 5.5 % (4.0-6.0)
[2022-12-13 12:32] LABS: Alanine Aminotransferase 26 IU/L (<50); Albumin 4.7 g/dL (3.5-5.0); Albumin Globulin Ratio 1.1 (1.0-2.8); Alkaline Phosphatase 84 U/L (38-126); Aspartate Aminotransferase 27 IU/L (17-59); BUN Creatinine Ratio 21.6 (6-22); Bilirubin Total 0.6 mg/dL (0.2-1.3); Blood Urea Nitrogen 21 mg/dL (9-20); Calcium 9.5 mg/dL (8.4-10.2); Carbon Dioxide 27 mmol/L (22-32); Chloride 103 mmol/L (98-107); Cholesterol 210 mg/dL (140-199); Estimated Glomerular Filt Rate > 60 mL/min (>60); Globulin 4.3 g/dL (1.7-4.1); Glucose 114 mg/dL (80-110); HDL Cholesterol 60 mg/dL (40-60); HEMOLYSIS < 15 (0-50); LDL Cholesterol Calculated 133 mg/dL (<100); Potassium 4.5 mmol/L (3.4-5.1); Sodium 141 mmol/L (137-145); Triglycerides 83 mg/dL (35-150)
[2022-12-13 13:01] LABS: Prostate Specific Antigen 1.28 ng/mL (0.10-4.00); TSH w/ Reflex to FT4 3.07 uIU/mL (0.47-4.68)
== END ==
PROVIDERS: Referring Provider Student in an Organized Health Care Education/Training Program; Visit Provider Student in an Organized Health Care Education/Training Program
DX: E78.49 Other hyperlipidemia (principal); R73.01 Impaired fasting glucose; N40.0 Benign prostatic hyperplasia without lower urinary tract symptoms; Z86.39 Personal history of other endocrine, nutritional and metabolic disease; R97.20 Elevated prostate specific antigen [PSA]; I10 Essential (primary) hypertension; G62.9 Polyneuropathy, unspecified
CPT/HCPCS: 36415; 80053; 80061; 83036; 84153; 84443; 85025

== ENCOUNTER 2024-01-07 12:48 | Emergency (ER) | payer MEDICARE, MEDICAID, SELFPAY ==
[2019-06-23 09:40] VITALS: BMI 31.8
[2024-01-07 12:52] VITALS: BP 170/93; PULSE 93; RESP 18; TEMP 36.7; O2SAT 98; BMI 31.8
--- NOTE | 2024-01-07 13:30 | ED_ITS ---
HPI - Dental/Oral <Ursula Guillaume PA-C - Last Filed: 01/07/24 13:41> General Chief complaint: Dental/Oral Stated complaint: infection in mouth, L face swelling, sent by [facility] Time Seen by Provider: 01/07/24 13:11 Source: patient Mode of arrival: Ambulatory History of Present Illness HPI Narrative: Mirza is a 73-year-old male with a history of poor dentition who was started yesterday on Augmentin for suspected dental infection by his PCP. He reports intermittent pain in multiple teeth over many years, has previously required antibiotics for this. Has been unable to access dental care due to financial concerns. Pain has been worse over the past week in the left upper back molars. He is taken 3 doses of the Augmentin and is tolerating the medication well but notes significantly more swelling in his left cheek today. He reports his pain is gone. He denies fever, chills, headache, difficulty swallowing, pain with eye movement, double vision. He presents to the emergency room for evaluation of the facial swelling. Related Data Home Medications Medication Instructions Recorded Confirmed clotrimazole 1 % topical cream 1 applic topical BID 04/09/23 01/06/24 (Lotrimin AF (clotrimazole)) Previous Rx's Medication Instructions Recorded epinephrine 0.3 mg/0.3 mL 0.3 mg (0.3 mL) IM Q10M PRN 06/16/19 injection, auto-injector (EpiPen anaphylaxis #2 ea 2-Valentín) pimecrolimus 1 % topical cream 1 applic topical BIDP #1 tube 11/14/21 (Elidel) ibuprofen 600 mg tablet See Rx Instructions .Route 01/11/22 .COMPLEX #30 tabs fluticasone propionate 50 See Rx Instructions .Route 02/13/22 mcg/actuation nasal .COMPLEX #16 grams spray,suspension paroxetine HCl 40 mg tablet See Rx Instructions .Route 05/16/22 .COMPLEX #135 tabs tamsulosin 0.4 mg capsule See Rx Instructions .Route 05/16/22 .COMPLEX #180 caps amlodipine 5 mg tablet See Rx Instructions .Route 06/18/22 .COMPLEX #30 tabs finasteride 5 mg tablet 5 mg PO DAILY #90 tabs 04/09/23 amoxicillin 875 mg-potassium 1 tab PO BID #20 tabs 01/06/24 clavulanate 125 mg tablet hydrocodone bitartrate 10 mg 10 mg PO Q12H #12 ea 01/06/24 capsule, oral only, extended rel 12 hr Allergies Allergy/AdvReac Type Severity Reaction Status Date / Time enalapril [ENALAPRIL] Allergy Severe TONGUE Verified 01/06/24 09:12 SWELLS amlodipine [AMLODIPINE] Allergy Mild LEG Verified 01/06/24 09:12 SWELLING lisinopril [LISINOPRIL] Allergy Mild DIARRHEA Verified 01/06/24 09:12 acetaminophen [From PERCOCET] AdvReac Intermediate itching Verified 01/06/24 09:12 oxycodone [From PERCOCET] AdvReac Intermediate itching Verified 01/06/24 09:12 Review of Systems <Ursula Guillaume PA-C - Last Filed: 01/07/24 13:41> Review of Systems ROS Unobtainable: All systems reviewed & are unremarkable except as noted in HPI and below Patient History <Ursula Guillaume PA-C - Last Filed: 01/07/24 13:41> Medical History History of elevated PSA BPH w urinary obs/LUTS Poor dentition Lower urinary tract symptoms (LUTS) Dental infection Bradycardia Hypothyroid Hyperlipidemia (~06/2013) History of psychosis ADD (attention deficit disorder) Bipolar disorder Benign prostatic hyperplasia Hypertension Acute meniscal tear of right knee Obesity (03/24/14) Surgical History H/O laparoscopy Status post arthroscopy (~1984) Family History Mother CAD (coronary artery disease) Myocardial infarct Ovarian cancer, unspecified laterality Hypertension Gallstones Cancer Father Cirrhosis Lung cancer Family/Other Dementia Social History marital status: number of children: 1 household members: none Smoking Status: Never smoker alcohol intake: never substance use type: does not use Type(s) of exercise: walking frequency: daily Smoking Status: Never smoker alcohol intake frequency: 0-2 drinks per day Substance Use Type: does not use Exam <Ursula Guillaume PA-C - Last Filed: 01/07/24 13:41> Narrative Exam Narrative: GENERAL: 73 year old patient appears stated age. Well-developed patient, in no acute distress. NEURO: AOx3. HEAD: Atraumatic. Normocephalic. EYES: Pupils equal round and reactive. Extraocular motions intact. No scleral icterus. No injection or drainage. ENT: Nose without bleeding or purulent drainage. Airway patent. Poor dentition, many missing teeth visible caries and partial teeth, including in the right upper molars where his recent pain was. There is no visible abscess. There is no visible drainage or bleeding from the gum. There is edema of the external cheek and mild tenderness to deep palpation. The skin is mildly erythematous but not warm. There is no underlying fluctuance. Extraocular movements are intact and painless. There is no drainage from the left ear and the TM is pearly nunez. There is no mastoid erythema, tenderness or swelling. Uvula midline, no evidence of peritonsillar abscess. RESPIRATORY: No distress. EXTREMITIES: No edema or joint tenderness. SKIN: No rash or erythema of visible areas Initial Vital Signs Initial Vital Signs: Vital Signs Temperature 98.1 F 01/07/24 12:52 Pulse Rate 93 H 01/07/24 12:52 Respiratory Rate 18 01/07/24 12:52 Blood Pressure 170/93 H 01/07/24 12:52 Pulse Oximetry 98 01/07/24 12:52 Oxygen Delivery Method Room Air 01/07/24 12:52 <Carolina Ojeda DO - Last Filed: 01/08/24 07:46> Initial Vital Signs Initial Vital Signs: Vital Signs Temperature 98.1 F 01/07/24 12:52 Pulse Rate 93 H 01/07/24 12:52 Respiratory Rate 18 01/07/24 12:52 Blood Pressure 170/93 H 01/07/24 12:52 Pulse Oximetry 98 01/07/24 12:52 Oxygen Delivery Method Room Air 01/07/24 12:52 Course <Ursula Guillaume PA-C - Last Filed: 01/07/24 13:41> Vital Signs Vital signs: Vital Signs - 8 hr 01/07/24 12:52 Temperature 98.1 F Pulse Rate 93 H Respiratory Rate 18 Blood Pressure 170/93 H Pulse Oximetry 98 Oxygen Delivery Method Room Air <Carolina DO Lynette - Last Filed: 01/08/24 07:46> Vital Signs Vital signs: Vital Signs - 8 hr 01/07/24 12:52 Temperature 98.1 F Pulse Rate 93 H Respiratory Rate 18 Blood Pressure 170/93 H Pulse Oximetry 98 Oxygen Delivery Method Room Air MDM - Dental/Oral <Ursula Guillaume PA-C - Last Filed: 01/07/24 13:41> MDM Narrative Medical decision making narrative: Multiple etiologies for patient's symptoms considered including, but not limited to: Dental infection, periorbital cellulitis, abscess Patient reports much improved pain since starting antibiotics yesterday. There is no evidence of abscess, peritonsillar abscess, periorbital cellulitis or other significant infection outside of the known dental infection. Imaging is not indicated today. Patient seems to be improving in the swelling is superficial. Provided education and strict return precautions patient. Provided information about low income and for dental services through [facility]. Patient understands return precautions and the he should complete all of his antibiotics even though he is feeling better. Patient's symptoms improved over duration of stay with above-stated therapies. Findings and discharge diagnosis discussed with patient/family followed by verbalization of understanding Return precautions discussed with patient/family whom verbalize understanding of diagnosis and plan Discharge Plan Departure Patient Disposition: Home Clinical Impression: Dental infection Instructions: Tooth Abscess Activity Restrictions/Additional Instructions: *It was a pleasure to meet you today Mirza. I am sorry that you have been dealing with a dental infection. I suggest reach out to [facility] dental clinic at ?[phone] to have your teeth assessed. Complete all the antibiotics even if you are feeling much better. You do have more swelling today but it is very reassuring that you are not having any pain, no headache, no vision changes or pain with eye movement and no fever or chills. If you develop any of the symptoms, please come back emergently to the emergency room. Please call [facility] as soon as possible to establish care with them. *What to do: *Please continue to take your regular medications as directed. [ ] New medication prescriptions sent to your pharmacy: [ ] [ ] New medication written as a paper prescription [x] No new medications given *Please follow up with your primary care provider in 2-3 days, call for an appointment. Let them know you were seen in the Emergency Department and that we ask that you be seen in follow up. We will electronically transmit a record of today's note if your PCP is in our system *If you do not have a primary care provider please contact the [facility] Resource line at [phone]. They will ask some questions about your medical history and help get you set up with a doctor in the community. *Return to Emergency Department if you should have any new, worsening or concerning symptoms, such as [fever greater than 101 F, shaking chills, worsening pain, persistent vomiting or other concerning symptoms]. Prescriptions: No Action hydrocodone bitartrate 10 mg capsule, oral only, ER 12hr 10 mg PO Q12H Qty: 12 0RF Rx Instructions: Use tylenol and ibuprofen as first line and add-on hydocodone only for breakthrough severe pain amoxicillin-pot clavulanate 875-125 mg tablet 1 tab PO BID Qty: 20 0RF pimecrolimus [Elidel] 1 % cream 1 applic TOP BIDP Qty: 1 1RF Hold Instructions: NON-COMPLIANT. NEEDS APPOINTMENT Rx Instructions: Apply to the affected area twice a day as needed, rub cream gently and completely. ibuprofen 600 mg tablet See Rx Instructions .ROUTE .COMPLEX Qty: 30 0RF Hold Instructions: NON-COMPLIANT. NEEDS APPOINTMENT. Dose Instruction: TAKE 1 TABLET BY MOUTH EVERY 6 HOURS NEEDED FOR PAIN Rx Instructions: TAKE 1 TABLET BY MOUTH EVERY 6 HOURS NEEDED FOR PAIN fluticasone propionate 50 mcg/actuation spray,suspension See Rx Instructions .ROUTE .COMPLEX Qty: 16 6RF Hold Instructions: NON-COMPLIANT. NEEDS APPOINTMENT Dose Instruction: SHAKE LIQUID AND USE 1 SPRAY IN EACH NOSTRIL TWICE DAILY NEEDED FOR ALLERGY SYMPTOMS Rx Instructions: SHAKE LIQUID AND USE 1 SPRAY IN EACH NOSTRIL TWICE DAILY NEEDED FOR ALLERGY SYMPTOMS tamsulosin 0.4 mg capsule See Rx Instructions .ROUTE .COMPLEX Qty: 180 0RF Hold Instructions: NON-COMPLIANT. NEEDS APPOINTMENT. Dose Instruction: TAKE 2 CAPSULES BY MOUTH EVERY EVENING Rx Instructions: TAKE 2 CAPSULES BY MOUTH EVERY EVENING paroxetine HCl 40 mg tablet See Rx Instructions .ROUTE .COMPLEX Qty: 135 0RF Hold Instructions: NON-COMPLIANT, NEEDS APPOINTMENT. Dose Instruction: TAKE 1 AND 1/2 TABLETS BY MOUTH EVERY EVENING Rx Instructions: TAKE 1 AND 1/2 TABLETS BY MOUTH EVERY EVENING amlodipine 5 mg tablet See Rx Instructions .ROUTE .COMPLEX Qty: 30 0RF Hold Instructions: NON-COMPLIANT. NEEDS APPOINTMENT Dose Instruction: TAKE 1 TABLET BY MOUTH DAILY Rx Instructions: TAKE 1 TABLET BY MOUTH DAILY epinephrine [EpiPen 2-Valentín] 0.3 mg/0.3 mL auto-injector 0.3 mg IM Q10M PRN (Reason: anaphylaxis) Qty: 2 0RF Hold Instructions: NON-COMPLIANT. NEED APPOINTMENT. Rx Instructions: until response clotrimazole [Lotrimin AF (clotrimazole)] 1 % cream 1 applic topical BID finasteride 5 mg tablet 5 mg PO DAILY Qty: 90 3RF Referrals: Maegan Tatum DO [Primary Care Provider] - Stand Alone Forms: Patient Portal/API ED Sign-out <Carolina Ojeda DO - Last Filed: 01/08/24 07:46> Cosign ED Attending Rahul Attestation: I was available for consultation.
== END 2024-01-07 13:32 | disposition home or self-care (01) ==
PROVIDERS: Emergency Provider Physician Assistant; PCP Student in an Organized Health Care Education/Training Program
DX: K04.7 Periapical abscess without sinus (principal)
CPT/HCPCS: 99281; 99282

== ENCOUNTER → 2025-04-27 08:27 | Outpatient (CLI) | payer MEDICARE, MEDICAID, SELFPAY ==
[2019-06-23 09:40] VITALS: BMI 31.8
[2025-04-27 09:03] LABS: Add Manual Diff / Slide Review NO; Basophils Absolute Auto 100 /uL (0-100); Basophils Percent Auto 1.9 % (0-2); Eosinophils Absolute Auto 300 /uL (0-450); Eosinophils Percent Auto 4.6 % (2-4); Hematocrit 44.1 % (41-53); Hemoglobin 15.3 g/dL (13.5-17.5); Lymphocytes Absolute Auto 2100 /uL (1100-4500); Lymphocytes Percent Auto 35.9 % (25-40); Mean Corpuscular HGB Conc 34.6 % (30-36); Mean Corpuscular Hemoglobin 31.2 PG (26-34); Monocytes Absolute Auto 500 /uL (0-900); Monocytes Percent Auto 8.2 % (3-14); Neutrophils Absolute Auto 2900 /uL (1500-7000); Neutrophils Percent Auto 49.4 % (50-75); Platelet Count 260 X10^3/uL (150-400); Red Cell Distribution Width 13.5 % (11.6-14.8); White Blood Cell Count 5.9 X10^3/uL (4.5-11.0)
[2025-04-27 09:08] LABS: Hemoglobin A1C% w Est Avg Glu 4.9 % (4.0-6.0)
[2025-04-27 09:18] LABS: HEMOLYSIS < 15 (0-50)
[2025-04-27 09:23] LABS: Alanine Aminotransferase 27 IU/L (<50); Albumin 4.4 g/dL (3.5-5.0); Albumin Globulin Ratio 1.5 (1.0-2.8); Alkaline Phosphatase 75 U/L (38-126); Aspartate Aminotransferase 29 IU/L (17-59); BUN Creatinine Ratio 14.2 (6-22); Bilirubin Total 1.1 mg/dL (0.2-1.3); Blood Urea Nitrogen 15 mg/dL (9-20); Calcium 9.8 mg/dL (8.4-10.2); Carbon Dioxide 27 mmol/L (22-32); Chloride 104 mmol/L (98-107); Cholesterol 131 mg/dL (140-199); Estimated Glomerular Filt Rate > 60 mL/min (>60); Glucose 100 mg/dL (70-99); HDL Cholesterol 53 mg/dL (40-60); LDL Cholesterol Calculated 58 mg/dL (<100); Potassium 4.1 mmol/L (3.4-5.1); Sodium 139 mmol/L (137-145); Total Protein 7.4 g/dL (6.3-8.2); Triglycerides 101 mg/dL (35-150)
[2025-04-27 09:42] LABS: Vitamin D 25 Hydroxy (D3) 18.5 ng/mL (30.0-100.0)
[2025-04-27 09:53] LABS: Rubella Antibody IgG 95.8 IU/mL (>15); TSH w/ Reflex to FT4 3.19 uIU/mL (0.47-4.68)
[2025-04-27 10:11] LABS: Vitamin B12 Reflex MMA if <400 534 pg/mL (239-931)
[2025-04-28 10:08] LABS: Rubeola Measles IgG > 300.0 AU/mL (Immune >16.4)
== END ==
LOC: LAB 08:31
PROVIDERS: PCP Student in an Organized Health Care Education/Training Program; Referring Provider Student in an Organized Health Care Education/Training Program; Visit Provider Student in an Organized Health Care Education/Training Program
DX: Z01.84 Encounter for antibody response examination (principal); E78.49 Other hyperlipidemia; R73.9 Hyperglycemia, unspecified; Z68.34 Body mass index [BMI] 34.0-34.9, adult; I10 Essential (primary) hypertension; R53.83 Other fatigue
CPT/HCPCS: 36415; 80053; 80061; 82306; 82607; 83036; 84443; 85025; 86735; 86762; 86765

== ENCOUNTER → 2025-06-20 15:16 | Outpatient (CLI) | payer MEDICARE, MEDICAID, SELFPAY ==
[2019-06-23 09:40] VITALS: BMI 31.8
--- NOTE | 2025-06-20 15:17 | DI.NM.S_ITS ---
PROCEDURE: NM EXERCISE TREADMILL NON NUC COMPARISON: None. INDICATIONS: CORONARY ARTERY CALCIFICATION FINDINGS: Patient exercised per the standard Lb protocol. Total exercise time was 3 minutes and 37 seconds. Test was terminated due to knee pain. Maximal heart rate attained is 179 bpm which is 123% of max impacted heart rate. Maximum blood pressure was 138/[place] [address]. NOEMI +34%. 4.6 METS. Unable to comment on ischemic changes due to significant baseline artifact noted during the stress phase. No ischemic changes noted during recovery. Frequent PACs noted during the stress phase as well as throughout recovery. No other arrhythmias noted. No chest pains voiced. Normal heart rate and blood pressure response to exercise. IMPRESSION: 1. Nondiagnostic exercise treadmill stress test due to significant baseline artifact. Dictated by: Kj Levy M.D. on 06/20/2025 at 17:27 Approved by: Kj Levy M.D. on 06/20/2025 at 17:29
== END ==
LOC: NUCM 15:17
PROVIDERS: PCP Student in an Organized Health Care Education/Training Program; Referring Provider Student in an Organized Health Care Education/Training Program; Visit Provider Internal Medicine Cardiovascular Disease
DX: I25.10 Atherosclerotic heart disease of native coronary artery without angina pectoris (principal)
CPT/HCPCS: 93017

== ENCOUNTER → 2025-11-16 09:44 | Outpatient (CLI) | payer MEDICARE, MEDICAID, SELFPAY ==
[2019-06-23 09:40] VITALS: BMI 31.8
--- NOTE | 2025-11-18 07:41 | DI.NM.S_ITS ---
DATE OF SERVICE: 11/16/2025 PHARMACOLOGICAL PERFUSION STUDY INDICATIONS: Coronary artery calcification, hypertension, hyperlipidemia. RADIOPHARMACEUTICAL: 25.3 millicurie technetium-99m Myoview IV was injected at stress and 10.5 millicurie technetium-99m Myoview IV was injected at rest. CARDIAC STRESS: The patient underwent pharmacological perfusion study as per standard protocol. The patient remained hemodynamically stable. Baseline blood pressure 120/80. Baseline rhythm sinus with some isolated PACs. During stress, no convincing ischemic changes seen. The patient remained had some PACs and short run of SVT. No obvious AFib. Baseline also has first-degree AV block. No chest pain during stress. RAW DATA: There is increased subdiaphragmatic activity. The patient's weight is 230 pounds. GATED STUDY: Resting LV ejection fraction 73% and stress LV ejection fraction 75% without any obvious wall motion abnormalities. Resting end- diastolic volume 124 mL. TID ratio 0.94, which is within normal limits. MYOCARDIAL PERFUSION SCAN: Stress supine and resting supine images revealed small size, mildly decreased perfusion of basal inferior wall extending into the basal inferolateral wall as well as some distal anteroseptum. However, during stress prone images, those defects got significantly improved, suggestive of tissue attenuation artifact. No convincing ischemia or infarction pattern seen. CONCLUSION: I will call this study a normal myocardial perfusion study with evidence of tissue attenuation artifact which got improved during stress prone images. The patient's weight is 230 pounds. Preserved LV function. Baseline rhythm sinus with first-degree AV block and PACs. No convincing ischemic stress EKG changes. Short run of SVT during Lexiscan. No obvious AFib or ventricular tachycardia. No chest pain. Overall, low-risk myocardial perfusion scan. Mirza Finley - RODNEY/alex/MAYKEL doc#: [id number]/job#: [id number] dd: 11/16/2025 16:33:00 dt: 11/16/2025 16:48:00 DICTATING MD/COPIES TO: Kaycee Freeman MD COPIES MNE: ELIZABETH;
== END ==
LOC: NUCM 09:45
PROVIDERS: PCP Student in an Organized Health Care Education/Training Program; Referring Provider Internal Medicine Cardiovascular Disease; Visit Provider Internal Medicine Cardiovascular Disease
DX: I25.10 Atherosclerotic heart disease of native coronary artery without angina pectoris (principal); I44.0 Atrioventricular block, first degree; I49.1 Atrial premature depolarization
CPT/HCPCS: 78452; 93017; A9502; J2785